=== PATIENT | male | born 1960 | race Caucasian/White ===

== ENCOUNTER 2016-04-05 23:16 | Emergency (ER) | payer OTHER ==
[~2016-04-05] VITALS: Ht 177.8 cm; Wt 86.5 kg
[~2016-04-05 23:16] MED LIST: ACTOS PO; ASPI-664 PO; DOCU-144 PO; GABA-526 PO; HYDR-3498 PO; HYDR-906 PO; ISOS30TA5 PO; LANT3I; METF500T4 PO; OMEP20CA16 PO; PARO10TA26 PO; RAMI2.5C36 PO; SIMV10TA6 PO
[2016-04-05 23:20] VITALS: Ht 177.8 cm; Wt 86.5 kg
[2016-04-06] MEDS ORDERED: morphine 4 MG/ML VIAL IV STA (03:34)
[2016-04-06] MEDS ORDERED: ONDANSETRON 4 MG INJ IV STA (03:34)
[2016-04-06] MEDS ORDERED: SOD CHLORIDE 0.9% 1,000 ML IV STA (03:34)
[2016-04-06 03:59] LABS: BASOPHIL # 0.1 10^3/ul (0.0-0.1); BASOPHILS % 0.7 % (0.0-2.0); EOSINOPHILS # 1.4 10^3/ul (0.0-0.5); EOSINOPHILS % 11.4 % (0.0-7.0); HEMATOCRIT 45.5 % (42.0-52.0); HEMOGLOBIN 15.6 g/dl (14.0-18.0); LYMPHOCYTES # 3.7 10^3/ul (0.8-2.9); LYMPHOCYTES % 30.9 % (15.0-51.0); MEAN CORPUSCULAR HEMOGLOBIN 31.6 pg (29.0-33.0); MEAN CORPUSCULAR HGB CONC 34.2 g/dl (32.0-37.0); MEAN CORPUSCULAR VOLUME 92.5 fl (82.0-101.0); MEAN PLATELET VOLUME 7.6 fl (7.4-10.4); MONOCYTE # 0.7 10^3/ul (0.3-0.9); MONOCYTES % 5.5 % (0.0-11.0); NEUTROPHIL # 6.1 10^3/ul (1.6-7.5); NEUTROPHILS % 51.5 % (39.0-77.0); PLATELET COUNT 233 10^3/UL (140-440); RED BLOOD COUNT 4.92 10^6/ul (4.70-6.10); RED CELL DISTRIBUTION WIDTH 12.8 % (11.5-14.5); UNCORRECTED WBC 11.9 10^3/ul (4.8-10.8); WHITE BLOOD COUNT 11.9 10^3/ul (4.8-10.8)
[2016-04-06 04:22] LABS: CONDITION 1
[2016-04-06 04:28] LABS: ADD UMIC NO; URINE BILIRUBIN (Dip) NEGATIVE (NEGATIVE); URINE BLOOD (Dip) NEGATIVE (NEGATIVE); URINE COLOR LT. YELLOW (YELLOW); URINE GLUCOSE (Dip) NEGATIVE (NEGATIVE); URINE KETONES (Dip) NEGATIVE (NEGATIVE); URINE LEUKOCYTE ESTERASE (Dip) NEGATIVE (NEGATIVE); URINE NITRITE (Dip) NEGATIVE (NEGATIVE); URINE TOTAL PROTEIN (Dip) NEGATIVE (NEGATIVE); URINE UROBILINOGEN (Dip) 0.2 E.U./dL (0.1-1.0)
[2016-04-06 04:28] LABS: BILIRUBIN,INDIRECT 0.4 mg/dl (0-1.1); BILIRUBIN,TOTAL 0.4 mg/dl (0.2-1.3); CALCIUM 9.6 mg/dl (8.4-10.2); CREATININE 0.73 mg/dl (0.61-1.24); TOTAL PROTEIN 7.9 g/dl (6.1-8.1)
[2016-04-06 04:33] LABS: ALBUMIN/GLOBULIN RATIO 1.25
[2016-04-06 04:36] LABS: ALBUMIN 4.4 g/dl (3.3-4.9)
--- NOTE | 2016-04-06 05:59 | RADRPT ---
PROCEDURE: CT Abdomen and pelvis without contrast. CLINICAL INDICATION: Abdominal pain. TECHNIQUE: CT scan of the abdomen and pelvis was performed on the [place] 6 4 slice VCT scanner. Contiguous axial images using 2.5 mm slice thickness were obtained from the keanu ng bases to the ischial tuberosities without intravenous contrast. Coronal and sagittal reformatted images were also obtained. Images were reviewed on the PACS workstation. One or more of the following dose reduction techniques were used: - Automated exposure control. - Adjustment of the mA and/or kV according to patient size. - Use of iterative reconstruction technique. Exam CTD/vol = 20.42 mGy. Total exam DLP = 1147.28 mGy-cm. COMPARISON: 04/21/2015. FINDINGS: Evaluation of the lung bases demonstrates mild bibasilar atelectasis. Abdomen: The liver is normal in size. There is no focal mass or dilatation of the biliary tree. T he gallbladder is not distended. The spleen, pancreas and bilateral adrenal glands are within mynor l limits. Bilateral kidneys are normal in size with no contour deforming mass identified. There is no radiopaque renal or ureteral calculus identified. There is no hydronephrosis or hydroureter. T here is no retroperitoneal adenopathy. The abdominal aorta is of normal caliber with scattered athe rosclerotic calcifications. There is no abnormal bowel wall thickening or distension. There is no bowel obstruction or free air . A normal appendix is identified. There is no diverticulosis or diverticulitis. There is no asci sandhya. Pelvis: The bladder demonstrates mild wall thickening. There are bilateral small inguinal hernias containing fat. The prostate and seminal vesicles are within normal limits. There is no significan t pelvic adenopathy or free fluid. Evaluation of the osseous structures demonstrates no suspicious lytic or blastic lesion. IMPRESSION: Mild bladder wall thickening could be due to underdistension or represent cystitis. Clinical correl ation is needed. Bilateral small inguinal hernias containing fat. Vascular calcifications reflective of atherosclerosis. Mild bibasilar atelectasis. .Raymundo Brown MD, Date Time Electronically viewed and signed by .Raymundo Brown MD, on 04/06/2016 05:59 .T/
[2016-04-06] MEDS ORDERED: POLY17PO6 PO (06:28)
[2016-04-06] MEDS ORDERED: HYDR-906 PO (06:28)
[2016-04-06 06:30] VITALS: BP 134/86; PULSE 65; RESP 17; TEMP 97.6
--- NOTE | 2016-04-06 06:48 | ERD ---
ER Documentation Chief Complaint Date/Time DATE: 04/06/16 TIME: 06:38 Chief Complaint SP HERNIA REPAIR , C/O POST OP PAIN X 2 DAYS HPI This 55-year-old male presents emergency room for right lower abdominal pain status post hernia repair 3 weeks ago. I reviewed the EMR.. The surgery was done by . Patient ran out of his pain medication 2 days ago and has had pain since then. He denies fevers and chills. Pain is described as a aching pain. ROS All systems reviewed and are negative except as per history of present illness. Medications Home Meds Active Scripts Polyethylene Glycol* (Miralax*) 17 Gm Powd.pack, 17 GM PO DAILY for CONSTIPATION , #5 PACKET Prov:GERSONAKIKO DO 04/06/16 Hydrocodone/Acetaminophen ([place] 5-325 Tablet) 1 Each Tablet, 1 EACH PO Q6, #20 TAB Prov:AKIKO NIETO DO 04/06/16 Hydrocodone/Acetaminophen ([place] 5-325 Tablet) 1 Each Tablet, 1 TAB PO Q6H Y for PAIN, #10 TAB Prov:RADHA MERCEDES PA-C 01/08/16 Hydrocodone Bit-Acetaminophen* ([place]*) 5-325 Mg Tab, 1 TAB PO Q6 Y for PAIN, # 7 TAB Prov:JOSE CHAPMAN PA-C 09/03/15 Paroxetine Hcl* (Paxil*) 10 Mg Tab, 10 MG PO DAILY for 30 Days Prov:NADER LINN 12/02/14 Isosorbide Mononitrate* (Isosorbide Mononitrate*) 30 Mg Tabsr, 30 MG PO DAILY for 30 Days Prov:NADER LINN 12/02/14 Aspirin* (Aspirin* EC) 81 Mg Tabec, 81 MG PO DAILY for 30 Days Prov:NADER ILNN 12/02/14 Reported Medications [Actos] No Conflict Check, PO 06/23/15 Ramipril (Ramipril) 2.5 Mg Capsule, 2.5 MG PO DAILY, CAP 05/05/15 Omeprazole* (Omeprazole*) 20 Mg Capsule., 20 MG PO DAILY 04/21/15 Simvastatin (Simvastatin) 10 Mg Tablet, 10 MG PO DAILY 04/21/15 Insulin Glargine* (Lantus*) 100 Unit/Ml Soln 04/21/15 Gabapentin* (Gabapentin*) 600 Mg Tablet, 600 MG PO TID, #90 TAB 04/21/15 Docusate Sodium* (Colace*) 100 Mg Capsule, 100 MG PO DAILY 10/30/12 Metformin* (Glucophage*) 500 Mg Tab, 1000 MG PO BID 09/05/11 Allergies Allergies: Coded Allergies: Penicillins (Unverified Allergy, Unknown, 12/02/14) PMhx/Soc History of Surgery: Yes (hernia surgery 01/2016) Anesthesia Reaction: No Hx Neurological Disorder: No Hx Respiratory Disorders: No Hx Cardiac Disorders: Yes (HTN, HIGH CHOLESTEROL, DM2) Hx Psychiatric Problems: No Hx Miscellaneous Medical Probl: No Hx Alcohol Use: No Hx Substance Use: No Hx Tobacco Use: Yes Smoking Status: Current every day smoker Physical Exam Vitals Vital Signs Date Time Temp Pulse Resp B/P Pulse Ox O2 Delivery O2 Flow Rate FiO2 04/06/16 05:35 97.5 79 17 128/80 100 Room Air 04/05/16 23:20 98.6 90 20 143/80 98 Physical Exam Const: [] No distress Head: Atraumatic Eyes: Normal Conjunctiva ENT: Normal External Ears, Nose and Mouth. Neck: Full range of motion..~ No meningismus. Resp: Clear to auscultation bilaterally Cardio: Regular rate and rhythm, no murmurs Abd: Soft, mild right lower quadrant/pelvic pain with no deformities or guarding or rebound. Non distended. Normal bowel sounds Skin: No petechiae or rashes Back: No midline or flank tenderness Ext: No cyanosis, or edema Neur: Awake and alert prior 3, no focal deficits Psych: Normal Mood and Affect Result Diagram: 04/06/16 0320 04/06/16 0320 Results 24 hrs Laboratory Tests Test 04/06/16 03:20 04/06/16 03:45 Alanine Aminotransferase (ALT/SGPT) 25IU/L Albumin 4.4g/dl Albumin/Globulin Ratio 1.25 Alkaline Phosphatase 72IU/L Anion Gap 19 Aspartate Amino Transf (AST/SGOT) 18IU/L Basophils # 0.110^3/ul Basophils % 0.7% Blood Urea Nitrogen 16mg/dl Calcium Level 9.6mg/dl Carbon Dioxide Level 28mmol/L Chloride Level 98mmol/L Creatinine 0.73mg/dl Direct Bilirubin 0.00mg/dl Eosinophils # 1.410^3/ul Eosinophils % 11.4% Globulin 3.50g/dl Glucose Level 177mg/dl Hematocrit 45.5% Hemoglobin 15.6g/dl Indirect Bilirubin 0.4mg/dl Lipase 55U/L Lymphocytes # 3.710^3/ul Lymphocytes % 30.9% Mean Corpuscular Hemoglobin 31.6pg Mean Corpuscular Hemoglobin Concent 34.2g/dl Mean Corpuscular Volume 92.5fl Mean Platelet Volume 7.6fl Monocytes # 0.710^3/ul Monocytes % 5.5% Neutrophils # 6.110^3/ul Neutrophils % 51.5% Nucleated Red Blood Cells # 0.010^3/ul Nucleated Red Blood Cells % 0.0/100WBC Platelet Count 41039^3/UL Potassium Level 4.0mmol/L Red Blood Count 4.9210^6/ul Red Cell Distribution Width 12.8% Sodium Level 141mmol/L Total Bilirubin 0.4mg/dl Total Protein 7.9g/dl White Blood Count 11.910^3/ul Urine Bilirubin NEGATIVE Urine Clarity CLEAR Urine Color LT. YELLOW Urine Glucose NEGATIVE% Urine Hemoglobin NEGATIVE Urine Ketones NEGATIVE Urine Leukocyte Esterase NEGATIVE Urine Nitrite NEGATIVE Urine Specific Breese 1.015 Urine Total Protein NEGATIVE Urine Urobilinogen 0.2 E.U./dL Urine pH 6.0 Current Medications Medications (Trade) Dose Ordered Sig/Antonia Route PRN Reason Start Time Stop Time Status Last Admin Dose Admin Sodium Chloride (NS) 1,000 ml @ 1,000 mls/hr Q1H STAT IV 04/06/16 03:34 04/06/16 04:33 DC 04/06/16 03:46 Morphine Sulfate (morphine) 4 mg ONCE STAT IV 04/06/16 03:34 04/06/16 03:36 DC 04/06/16 03:46 Ondansetron HCl (Zofran Inj) 4 mg ONCE STAT IV 04/06/16 03:34 04/06/16 03:36 DC 04/06/16 03:46 Procedures/MDM Patient with postop pain likely secondary to running out of narcotic pain medication at home. He has a mildly elevated white blood cell count but no signs of acute infection and CT. CT mentioned mild bladder wall thickening but patient had a completely normal urinalysis. I doubt acute infection at this time. Likely the patient experienced any surgical emergency. A benign abdominal exam. Discharging him with prescription for [place] as well as MiraLAX. I placed a courtesy call the doctor Rema who agrees with discharge and the patient to follow-up in his office next week. She is asymptomatic after given 4 g of morphine a liter of normal saline and Zofran. He is happy do not find anything seriously wrong. Nothing providing him with that instructions for doctor Rema. CT abdomen and pelvis interpretation: No acute process I see no abnormal fat stranding, no obstruction, no free air, no abnormal fluid collections, no bony abnormalities Departure Diagnosis: Primary Impression: Post-op pain Condition: Stable Patient Instructions: Post Op Wound Check, Pain Referrals: Jenaro ROTH Additional Instructions: Llame al cirujano el lunes para hafsa BOOM PARA DENTRO DE 2-3 CABA.Dgale a la secretaria que nosotros le instruimos hacer esta boom.Avise o llame si whitaker condicin se empeora antes de la boom. Regresa aqui si peor o no mejor. AKIKO NIETO DO Apr 06, 2016 06:48
== END 2016-04-06 07:06 | disposition home or self-care (01) ==
LOC: E/R 23:16
DX: R10.31 Right lower quadrant pain (principal); G89.18 Other acute postprocedural pain; I10 Essential (primary) hypertension; E11.9 Type 2 diabetes mellitus without complications; F17.210 Nicotine dependence, cigarettes, uncomplicated; Z79.4 Long term (current) use of insulin; Z79.84 Long term (current) use of oral hypoglycemic drugs; Z79.82 Long term (current) use of aspirin
CPT/HCPCS: 36415; 74176; 80053; 81003; 83690; 85025; 96374; 96375; J2270; J2405; J7030; Z7502

== ENCOUNTER 2016-05-24 07:31 | Day surgery (SDC) | payer OTHER ==
[~2016-05-24] VITALS: Ht 170.2 cm; Wt 90.2 kg
[2016-05-24] VITALS (16 sets, daily range): BP systolic 116–183; BP diastolic 62–102; PULSE 74–88; RESP 14–28; Ht 170.2 cm; Wt 90.2 kg
[~2016-05-24 07:31] MED LIST changes: +CLINDAMYCIN 600 MG/D5W (PMX) 50 ML IVPB ONE; +POLY17PO6 PO; +SOD CHLORIDE 0.9% 1,000 ML IV SCH
[2016-05-24] MEDS ORDERED: BUPIVACAINE 0.25% (MPF) 30 ML INJ ONE (07:56)
--- NOTE | 2016-05-24 08:22 | RADRPT ---
PROCEDURE: XR Chest. CLINICAL INDICATION: Preoperative evaluation for right inguinal hernia. TECHNIQUE: Single AP portable chest COMPARISON: 02/16/2016 FINDINGS: The cardiomediastinal silhouette is within normal limits of size ..The lungs are clear without pleur al effusion or focal consolidation. No pneumothorax. The osseous structures and soft tissues are unr emarkable. IMPRESSION: 1. No evidence for active cardiopulmonary disease. RPTAT:AAJJ Physician Jorge Date Time Electronically viewed and signed by Arron Day Physician on 05/24/2016 08:21 LINDSAY/
[2016-05-24] MEDS ORDERED: POLYMYXIN/BACITRACIN 1L IRRIG ONE (09:50)
[2016-05-24] MEDS ORDERED: MIDAZOLAM 1 MG/ML 2 ML INJ ONE (10:00)
[2016-05-24] MEDS ORDERED: FENTAnyl 50 MCG/ML VIAL IV PRN (10:30)
[2016-05-24] MEDS ORDERED: ONDANSETRON 4 MG INJ IV PRN (10:30)
[2016-05-24] MEDS ORDERED: DIPHENHYDRAMINE 50 MG INJ IV PRN (10:30)
[2016-05-24] MEDS ORDERED: morphine (1 MG/ML) 10ML SYRINGE IV PRN (10:30)
[2016-05-24] MEDS ORDERED: MEPERIDINE 25 MG INJ IV PRN (10:30)
[2016-05-24] MEDS ORDERED: METOCLOPRAMIDE 10 MG INJ IV PRN (10:30)
[2016-05-24] MEDS ORDERED: NEOSTIGMINE 3 MG/3 ML SYRINGE ONE (11:16)
[2016-05-24] MEDS ORDERED: PROPOFOL 20 ML ONE (11:16)
[2016-05-24] MEDS ORDERED: LIDOCAINE 2% (SDV) 5 ML INJ ONE (11:16)
[2016-05-24] MEDS ORDERED: GLYCOPYRROLATE 1 MG INJ ONE (11:16)
[2016-05-24] MEDS ORDERED: ROCURONIUM 50 MG INJ ONE (11:16)
[2016-05-24] MEDS ORDERED: ONDANSETRON 4 MG INJ ONE (11:17)
[2016-05-24] MEDS ORDERED: HYDROCODONE/APAP (5/325) TAB PO ONE (11:30)
[2016-05-24] MEDS: morphine (1 MG/ML) 10ML SYRINGE IV PRN ×2 (11:45→11:53)
--- NOTE | 2016-05-24 12:05 | OPR ---
DATE OF OPERATION: 05/24/2016 INDICATION: This is a 55-year-old male with recurrent right inguinal hernia and incarcerated ventra l hernia. He requests surgical repair. Risks, alternatives, benefits, and personnel were discussed with the patient. The patient expressed understanding and consents to the operation. PREOPERATIVE DIAGNOSIS: Recurrent right inguinal and incarcerated ventral hernia. POSTOPERATIVE DIAGNOSIS: Recurrent right inguinal Incarcerated ventral hernia. OPERATION PERFORMED: 1. Laparoscopic recurrent right inguinal hernia repair with mesh Bard soft. 2. Laparoscopic incarcerated ventral hernia repair with mesh 10 x [address] SURGEON: Lacho Roth MD HEALTH SCIENCE WRITER: Gabe Dozier MD SPECIMENS: None. COMPLICATIONS: None. ANESTHESIA: General. DESCRIPTION OF PROCEDURE: The patient was taken to the OR, prepped and draped in the usual sterile fashion. Surgical timeout was performed. IV antibiotics were given. Infraumbilical transverse inc ision is made with a 15 blade. Dissection cautery was carried down to the fascia which was divided with curved Marion scissors. An 0 Vicryl U-stitch was placed into the fascia. Balloon Wes trocar is introduced. Pneumoperitoneum established. Left flank 12 mm optical trocar and left lower quadra nt 5 mm optical trocars are placed under direct visualization. Upon initial inspection, there was a right inguinal hernia and a ventral hernia that is incarcerated. The recurrent inguinal hernia was addressed initially. Peritoneal flaps were raised to create the retroperitoneal space. Cord struct ures identified. There was a right indirect inguinal hernia which was reduced laparoscopically. Th ere appears to be old mesh that is affixed to the old hernia site. The Bard soft mesh was secured i n place with SecureStrap to the pubic tubercle and Straps are created and reapproximate around the c ord structures to recreate the inguinal ring. The peritoneal flaps and then reapproximated to the a nterior abdominal wall with SecureStrap to cover the mesh. The infraumbilical port was removed and t he fascia was tied down with 0 Vicryl U-stitch. Skin was closed in the infraumbilical incision with skin kali. A left upper quadrant 5 mm incision was made. A 5 mm optical trocar was introduced u nder direct visualization. The incarcerated ventral hernias was addressed. The incarcerated hernia was reduced and resected with laparoscopic Harmonic. The defect was identified. It was a very smal l defect. This area is repaired after the incarcerated contents were resected. Underlay mesh was s ecured with a SecureStrap with approximately 4 to 5 cm of coverage in all directions. There was goo d hemostasis. All ports removed under direct visualization. Skin was closed with skin kali. Lo lulu anesthesia was injected. Dry dressings were applied. Dictated By: LACHO ROTH MD SB/NTS Conf#: [id number] DID#: [id number] CC: GABE DOZIER MD;*EndCC*
[2016-05-24] MEDS ORDERED: hydrALAzine 20 MG INJ ONE (12:08)
[2016-05-24] MEDS ORDERED: hydrALAzine 20 MG INJ IV PRN (12:30)
--- NOTE | 2016-05-28 17:49 | RADRPT ---
Vent Rate: 73 bpm RR Interval: 0 msec LA Interval: 168 msec QRS Duration: 88 msec QT Interval: 398 msec QTC Interval: 438 msec P-R-T [place]: 64 - 70 - 58 degrees Normal sinus rhythm Normal ECG Electronically Signed By: Braeden Jiménez [id number]
== END 2016-05-24 16:46 | disposition home or self-care (01) ==
LOC: SDS 07:31
PROVIDERS: ATTEND Surgery
DX: K40.91 Unilateral inguinal hernia, without obstruction or gangrene, recurrent (principal); K43.6 Other and unspecified ventral hernia with obstruction, without gangrene; I10 Essential (primary) hypertension; E11.9 Type 2 diabetes mellitus without complications; E78.5 Hyperlipidemia, unspecified; E66.9 Obesity, unspecified; Z68.30 Body mass index [BMI] 30.0-30.9, adult
CPT/HCPCS: 49651; 49653; 71010; 82962; 93005; C1781; J0360; J2250; J2270; J2405; J2710; J3010; Z7512; Z7610

== ENCOUNTER 2016-06-26 17:44 | Emergency (ER) | payer OTHER ==
[~2016-06-26] VITALS: Wt 88.0 kg
[~2016-06-26 17:44] MED LIST changes: -CLINDAMYCIN 600 MG/D5W (PMX) 50 ML IVPB ONE; -SOD CHLORIDE 0.9% 1,000 ML IV SCH
[2016-06-26] MEDS ORDERED: SOD CHLORIDE 0.9% 500 ML IV STA (20:35)
[2016-06-26] MEDS ORDERED: morphine 4 MG/ML VIAL IV STA (20:35)
[2016-06-26 21:00] VITALS: TEMP 98.9
--- NOTE | 2016-06-26 21:08 | RADRPT ---
PROCEDURE: XR Chest AP portable CLINICAL INDICATION: Abdominal pain TECHNIQUE: An AP portable radiograph of the chest was submitted. COMPARISON: 05/24/2016 FINDINGS: Support Hardware: None Cardiovascular: The cardiovascular silhouette appears unremarkable. Lung [place]: A poor inspiratory effort compresses lung parenchyma further exaggerating the interstit ial markings over the previous. No alveolar infiltrate is evident. Pleural Spaces: No pneumothorax or pleural effusion is identified. Osseous Structures: The osseous structures appear intact. Soft Tissues: The soft tissues appear unremarkable. IMPRESSION: 1. Poor inspiratory effort compresses lung parenchyma further exaggerating the interstitial marking s. 2. Otherwise, stable and unremarkable portable chest. Physician Otoniel Date Time Electronically viewed and signed by Physician Otoniel on 06/26/2016 21:08 /
[2016-06-26 21:14] LABS: ADD SCAN DIFF NO
[2016-06-26 21:16] LABS: BASOPHIL # 0.1 10^3/ul (0.0-0.1); BASOPHILS % 0.8 % (0.0-2.0); EOSINOPHILS # 1.5 10^3/ul (0.0-0.5); EOSINOPHILS % 14.2 % (0.0-7.0); HEMATOCRIT 43.1 % (42.0-52.0); HEMOGLOBIN 14.7 g/dl (14.0-18.0); LYMPHOCYTES # 3.5 10^3/ul (0.8-2.9); LYMPHOCYTES % 33.2 % (15.0-51.0); MEAN CORPUSCULAR HEMOGLOBIN 31.1 pg (29.0-33.0); MEAN CORPUSCULAR HGB CONC 34.1 g/dl (32.0-37.0); MEAN CORPUSCULAR VOLUME 91.1 fl (82.0-101.0); MEAN PLATELET VOLUME 9.4 fl (7.4-10.4); MONOCYTE # 0.7 10^3/ul (0.3-0.9); MONOCYTES % 6.7 % (0.0-11.0); NEUTROPHIL # 4.7 10^3/ul (1.6-7.5); NEUTROPHILS % 44.7 % (39.0-77.0); PLATELET COUNT 212 10^3/UL (140-415); RED BLOOD COUNT 4.73 10^6/ul (4.70-6.10); RED CELL DISTRIBUTION WIDTH 12.5 % (11.5-14.5); WHITE BLOOD COUNT 10.6 10^3/ul (4.8-10.8)
[2016-06-26 21:27] LABS: ALBUMIN 4.1 g/dl (3.3-4.9)
[2016-06-26 21:28] LABS: POTASSIUM 3.9 mmol/L (3.5-5.1)
[2016-06-26 21:29] LABS: INR 0.92; PARTIAL THROMBOPLASTIN TIME 29.7 Sec (25.0-35.0); PROTIME 12.4 Sec (12.2-14.2)
[2016-06-26 21:30] LABS: ALBUMIN/GLOBULIN RATIO 1.32; BILIRUBIN,INDIRECT 0.3 mg/dl (0-1.1); BILIRUBIN,TOTAL 0.3 mg/dl (0.2-1.3); CALCIUM 9.5 mg/dl (8.4-10.2); CREATININE 0.65 mg/dl (0.61-1.24); TOTAL PROTEIN 7.2 g/dl (6.1-8.1)
--- NOTE | 2016-06-26 21:47 | RADRPT ---
PROCEDURE: CT Abdomen and Pelvis without contrast CLINICAL INDICATION: Right lower quadrant abdominal pain TECHNIQUE: Transaxial images were obtained through the abdomen and pelvis on a multi-slice scanner without the intravenous contrast administration. No oral contrast had previously been given. Sagit marina and coronal re-formations were subsequently reconstructed. One or more of the following dose reduction techniques were used: - Automated exposure control. - Adjustment of the mA and/or kV according to patient size. - Use of iterative reconstruction technique. Radiation dose: CTDIvol = 21.05 mGy; DLP = 1123.41 mGy-cm. COMPARISON: 04/06/2016 FINDINGS: Lung bases: The visualized lung bases appear unremarkable. Liver: Normal in size and in attenuation. There is no focal lesion. Gallbladder: The wall is not thickened. No radiopaque stones are identified. Bile ducts: The intra and extrahepatic bile ducts are normal in caliber. Pancreas: Appears normal with no mass or inflammation evident. Spleen: Normal in size with no focal lesion. Adrenals: Normal with no mass identified. Kidneys, ureters and bladder: The kidneys are normal in size and there is no mass, pathological calc ification, or hydronephrosis evident. There is no perinephric stranding. The ureters are normal in c aliber and no ureteroliths are identified. The bladder appears unremarkable. Reproductive organs: The prostate is not enlarged. Stomach and bowel: The stomach appears unremarkable. The small bowel pattern is nonspecific. Subst antial stool seen in the right colon. A couple diverticuli are evident without evidence of divertic ulitis. There is no evidence of bowel obstruction or inflammation. Appendix: A normal-appearing vermiform appendix is evident. Peritoneum: No free intraperitoneal fluid or air is identified. There are small bilateral fat contai jevon inguinal hernias greater on the left than the right. Aorta: There is atherosclerotic vascular calcification but no abdominal aortic aneurysm is evident. IVC: Unremarkable. Lymph nodes: No pathologically enlarged nodes are identified. Osseous structures: Mild diffuse degenerative spine changes are noted. Small fat containing left ing uinal hernia. Soft tissues: There is stranding in the subcutaneous fat and even within the omentum in the periumb ilical region raising the possibility of either scarring O, edema or inflammation. IMPRESSION: 1. Since the previous CT of 04/06/2016, there is again substantial stool right colon with a few scat tered diverticuli without evidence of bowel obstruction or inflammation and with a normal-appearing vermiform appendix. 2. Stranding is seen about the umbilicus both in the subcutaneous fat and deep within the omentum t he right and the possibility of either postsurgical scarring, inflammation or edema. This was not ev ident on the previous CT. 3. Small bilateral fat containing inguinal hernias, greater on the left than the right, unchanged. 4. Persistent atherosclerotic vascular calcification. Physician Otoniel Date Time Electronically viewed and signed by Physician Otoniel on 06/26/2016 21:47 RH/
[2016-06-26] MEDS ORDERED: LANT3I SC (21:54)
[2016-06-26 21:55] LABS: ADD UMIC NO; URINE BILIRUBIN (Dip) NEGATIVE (NEGATIVE); URINE BLOOD (Dip) NEGATIVE (NEGATIVE); URINE COLOR LT. YELLOW (YELLOW); URINE GLUCOSE (Dip) NEGATIVE (NEGATIVE); URINE KETONES (Dip) NEGATIVE (NEGATIVE); URINE LEUKOCYTE ESTERASE (Dip) NEGATIVE (NEGATIVE); URINE NITRITE (Dip) NEGATIVE (NEGATIVE); URINE TOTAL PROTEIN (Dip) NEGATIVE (NEGATIVE); URINE UROBILINOGEN (Dip) 0.2 E.U./dL (0.1-1.0)
[2016-06-26] MEDS ORDERED: SIMV20TA PO (21:56)
[2016-06-26] MEDS ORDERED: PIOG30TA2 PO (21:56)
[2016-06-26] MEDS ORDERED: OMEP40CA6 PO (21:58)
[2016-06-26] MEDS ORDERED: POLY17PO6 PO (22:47)
[2016-06-26] MEDS ORDERED: MAGN400O4 PO (22:47)
--- NOTE | 2016-06-26 23:05 | ERD ---
ER Documentation Chief Complaint Date/Time DATE: 06/26/16 TIME: 22:59 Chief Complaint R SIDE AP FOR 3 DAYS. NO N/V. NO VOMITNG. NO DIARRHEA. HPI 55-year-old male presenting with right lower quadrant pain. He has a history of umbilical hernia repair about 1 month ago. He has had right lower quadrant pain for about 3 days with subjective fevers. No nausea, vomiting, diarrhea, constipation, hematochezia, or melena. He has been eating without difficulty. The pain is aching, radiating to his lower back and down both his lower extremities. He has no numbness or weakness in his lower extremities or low back. He denies any recent trauma. No dysuria or hematuria. ROS All systems reviewed and are negative except as per history of present illness. Medications Home Meds Active Scripts Magnesium Hydroxide* (Milk Of Magnesia*) 400 Mg/5 Ml Oral.susp, 30 ML PO DAILY for 7 Days, #1 BOTTLE Prov:DONNA MILLS MD 06/26/16 Polyethylene Glycol* (Miralax*) 17 Gm Powd.pack, 17 GM PO DAILY, #30 PACKET Prov:DONNA MILLS MD 06/26/16 Paroxetine Hcl* (Paxil*) 10 Mg Tab, 10 MG PO DAILY for 30 Days Prov:NADER LINN 12/02/14 Isosorbide Mononitrate* (Isosorbide Mononitrate*) 30 Mg Tabsr, 30 MG PO DAILY for 30 Days Prov:NADER LINN 12/02/14 Aspirin* (Aspirin* EC) 81 Mg Tabec, 81 MG PO DAILY for 30 Days Prov:NADER LINN 12/02/14 Reported Medications Omeprazole* (Omeprazole*) 40 Mg Capsule.dr, 40 MG PO DAILY, #30 CAP 06/26/16 Pioglitazone Hcl* (Actos*) 30 Mg Tablet, 30 MG PO DAILY, #30 TAB 06/26/16 Simvastatin* (Zocor*) 20 Mg Tablet, 20 MG PO QHS, #30 TAB 06/26/16 Insulin Glargine* (Lantus*) 100 Unit/Ml Soln, 45 UNIT SC QHS, #1 VIAL 06/26/16 Gabapentin* (Gabapentin*) 600 Mg Tablet, 600 MG PO TID, #90 TAB 1/22/16 Docusate Sodium* (Colace*) 100 Mg Capsule, 100 MG PO DAILY 10/30/12 Metformin* (Glucophage*) 500 Mg Tab, 1000 MG PO BID 09/05/11 Discontinued Reported Medications [Actos] No Conflict Check, PO 06/23/15 Ramipril (Ramipril) 2.5 Mg Capsule, 2.5 MG PO DAILY, CAP 05/05/15 Omeprazole* (Omeprazole*) 20 Mg Capsule.dr, 20 MG PO DAILY 04/21/15 Simvastatin (Simvastatin) 10 Mg Tablet, 10 MG PO DAILY 04/21/15 Insulin Glargine* (Lantus*) 100 Unit/Ml Soln 04/21/15 Discontinued Scripts Polyethylene Glycol* (Miralax*) 17 Gm Powd.pack, 17 GM PO DAILY for CONSTIPATION , #5 PACKET Prov:AKIKO NIETO DO 04/06/16 Hydrocodone/Acetaminophen ([place] 5-325 Tablet) 1 Each Tablet, 1 EACH PO Q6, #20 TAB Prov:AKIKO NIETO DO 04/06/16 Hydrocodone/Acetaminophen ([place] 5-325 Tablet) 1 Each Tablet, 1 TAB PO Q6H Y for PAIN, #10 TAB Prov:RADHA MERCEDES PA-C 01/08/16 Hydrocodone Bit-Acetaminophen* ([place]*) 5-325 Mg Tab, 1 TAB PO Q6 Y for PAIN, # 7 TAB Prov:JOSE CHAPMAN PA-C 09/03/15 Allergies Allergies: Coded Allergies: Penicillins (Unverified Allergy, Unknown, 06/26/16) PMhx/Soc History of Surgery: Yes (Umbilical hernia repair, inguinal hernia repair) Anesthesia Reaction: No Hx Neurological Disorder: Yes (NUERAPATHY) Hx Respiratory Disorders: No Hx Cardiac Disorders: Yes (HYPERTENSION, CAD-1 stent) Hx Psychiatric Problems: Yes (anxiety) Hx Miscellaneous Medical Probl: Yes (cholesterol) Hx Alcohol Use: No Hx Substance Use: No Hx Tobacco Use: Yes ( 10-14) Smoking Status: Never smoker FmHx Family History: No diabetes Physical Exam Vitals Vital Signs Date Time Temp Pulse Resp B/P Pulse Ox O2 Delivery O2 Flow Rate FiO2 06/26/16 21:00 98.9 65 18 146/82 100 Room Air 06/26/16 18:08 98.9 88 21 139/81 100 Physical Exam Const: No apparent distress, nontoxic, well-appearing Head: Atraumatic Eyes: Normal Conjunctiva ENT: Normal External Ears, Nose and Mouth. Neck: Full range of motion..~ No meningismus. Resp: Clear to auscultation bilaterally Cardio: Regular rate and rhythm, no murmurs Abd: Soft, mildly distended, right lower quadrant tenderness to palpation without rebound or guarding, otherwise nontender. Umbilical surgical scar healed well with no erythema, fluctuance, tenderness. Normal bowel sounds. No hernias on exam. Skin: No petechiae or rashes Back: No midline or flank tenderness Ext: No cyanosis, or edema Neur: Awake and alert Psych: Normal Mood and Affect Result Diagram: 06/26/16202906/26/16 2030 Results 24 hrs Laboratory Tests Test 06/26/16 20:30 06/26/16 21:24 White Blood Count 10.610^3/ul Red Blood Count 4.7310^6/ul Hemoglobin 14.7g/dl Hematocrit 43.1% Mean Corpuscular Volume 91.1fl Mean Corpuscular Hemoglobin 31.1pg Mean Corpuscular Hemoglobin Concent 34.1g/dl Red Cell Distribution Width 12.5% Platelet Count 71620^3/UL Mean Platelet Volume 9.4fl Neutrophils % 44.7% Lymphocytes % 33.2% Monocytes % 6.7% Eosinophils % 14.2% Basophils % 0.8% Nucleated Red Blood Cells % 0.0/100WBC Neutrophils # 4.710^3/ul Lymphocytes # 3.510^3/ul Monocytes # 0.710^3/ul Eosinophils # 1.510^3/ul Basophils # 0.110^3/ul Nucleated Red Blood Cells # 0.010^3/ul Prothrombin Time 12.4Sec Prothrombin Time Ratio 1.0 INR International Normalized Ratio 0.92 Activated Partial Thromboplast Time 29.7Sec Sodium Level 139mmol/L Potassium Level 3.9mmol/L Chloride Level 99mmol/L Carbon Dioxide Level 30mmol/L Anion Gap 14 Blood Urea Nitrogen 14mg/dl Creatinine 0.65mg/dl Glucose Level 140mg/dl Calcium Level 9.5mg/dl Total Bilirubin 0.3mg/dl Direct Bilirubin 0.00mg/dl Indirect Bilirubin 0.3mg/dl Aspartate Amino Transf (AST/SGOT) 20IU/L Alanine Aminotransferase (ALT/SGPT) 26IU/L Alkaline Phosphatase 72IU/L Total Protein 7.2g/dl Albumin 4.1g/dl Globulin 3.10g/dl Albumin/Globulin Ratio 1.32 Lipase 25U/L Urine Color LT. YELLOW Urine Clarity CLEAR Urine pH 7.0 Urine Specific [place] <=1.005 Urine Ketones NEGATIVE Urine Nitrite NEGATIVE Urine Bilirubin NEGATIVE Urine Urobilinogen 0.2 E.U./dL Urine Leukocyte Esterase NEGATIVE Urine Hemoglobin NEGATIVE Urine Glucose NEGATIVE% Urine Total Protein NEGATIVE Current Medications Medications (Trade) Dose Ordered Sig/Antonia Route PRN Reason Start Time Stop Time Status Last Admin Dose Admin Sodium Chloride (NS) 500 ml @ 500 mls/hr Q1H STAT IV 06/26/16 20:35 06/26/16 21:34 DC 06/26/16 20:56 Morphine Sulfate (morphine) 8 mg ONCE STAT IV 06/26/16 20:35 06/26/16 20:37 DC 06/26/16 20:56 Procedures/MDM EMERGENT LABS AND DIAGNOSTIC STUDIES: Lab Results above were reviewed and interpreted by ks. No significant abnormalities 12-lead EKG was interpreted by Kristie Mills MD: Normal Sinus Rhythm with ventricular rate of 66 beats per minute Normal axis Normal intervals No acute ST or T wave changes suggestive of acute ischemia or STEMI. Radiology Results as interpreted by Radiology below were reviewed by SKayla Mills MD: Chest x-ray: No acute abnormalities CT abdomen and pelvis: IMPRESSION: 1. Since the previous CT of 04/06/2016, there is again substantial stool right colon with a few scattered diverticuli without evidence of bowel obstruction or inflammation and with a normal-appearing vermiform appendix. 2. Stranding is seen about the umbilicus both in the subcutaneous fat and deep within the omentum the right and the possibility of either postsurgical scarring , inflammation or edema. This was not evident on the previous CT. 3. Small bilateral fat containing inguinal hernias, greater on the left than the right, unchanged. 4. Persistent atherosclerotic vascular calcification. Physician Otoniel Date Time Electronically viewed and signed by Physician Otoniel on 06/26/2016 21:47 Initial Nursing notes reviewed. Previous Medical Records requested via the Electronic Health Record. EMERGENCY DEPARTMENT COURSE / MEDICAL DECISION MAKING: Patient is presenting with right lower quadrant abdominal pain and subjective fevers. Here he is afebrile with stable vitals. He is nontoxic and well- appearing on exam. Differential includes but is not limited to postop infection , appendicitis, bowel obstruction, perforated viscus, recurrent hernia with incarceration, volvulus, ureterolithiasis. Labs did not show any acute abnormalities. Urinalysis was normal. Chest x-ray did not show any free air under the diaphragm. CT of the abdomen and pelvis did not show any acute abnormalities. There was some inflammation noted around the umbilical hernia surgical site, but there is no concerning findings on exam. CT did show retained stool in the right colon, which may be the etiology of his pain. I discussed this with the patient and plan to discharge him with laxatives. The patients symptoms have improved while in the ED and the patient remains hemodynamically stable. Patient was able to tolerate PO. The current assessment has been explained to the patient including the fact that the etiology of the pain cannot be ruled out with certainty. Patient was advised that in the event this is early in the process of a more serious condition they may expect their symptoms to worsen and if so to return to the emergency department immediately. Patient was advised to follow up with primary care physician as soon as possible for re-evaluation within the next 1- 2 days. All of the patients questions were answered. Patient verbalized understanding of plan and agrees. Advised to return to the ER for reevaluation within 12 hours if symptoms worsen. Patient's blood pressure was elevated (>120/80) but appears stable without evidence of hypertensive emergency or urgency. The patient was counseled about the risks of hypertension and urged to pursue outpatient monitoring and therapy within a week with their primary care physician. Departure Diagnosis: Primary Impression: Abdominal pain Abdominal location: right lower quadrant Qualified Code: R10.31 - Right lower quadrant abdominal pain Additional Impression: Constipation Constipation type: unspecified constipation type Qualified Code: K59.00 - Constipation, unspecified constipation type Condition: Stable Patient Instructions: Abdominal Pain, Treating Constipation Additional Instructions: Regrese en las prximas 12 horas si whitaker dolor abdominal est empeorando o si tiene otros sntomas relacionados. [place] los medicamentos para whitaker estreimiento segn lo prescrito. Sukumar hafsa filipe con whitaker mdico de cabecera en 1-2 baez. DONNA MILLS MD Jun 26, 2016 23:05
[2016-06-26 23:15] VITALS: BP 109/71; PULSE 71; RESP 18
== END 2016-06-26 23:23 | disposition home or self-care (01) ==
LOC: E/R 17:44
DX: R10.31 Right lower quadrant pain (principal); K59.00 Constipation, unspecified; I10 Essential (primary) hypertension; E11.9 Type 2 diabetes mellitus without complications; Z79.4 Long term (current) use of insulin; Z79.82 Long term (current) use of aspirin; Z79.84 Long term (current) use of oral hypoglycemic drugs; Z87.891 Personal history of nicotine dependence; Z98.61 Coronary angioplasty status
CPT/HCPCS: 36415; 71010; 74176; 80053; 81003; 83690; 85025; 85610; 85730; 87040; 93005; 96374; J2270; J7040; Z7502

== ENCOUNTER 2017-01-24 01:45 | Emergency (ER) | payer OTHER ==
[~2017-01-24] VITALS: Ht 172.7 cm; Wt 94.5 kg
[~2017-01-24 01:45] MED LIST changes: -ACTOS PO; -HYDR-3498 PO; -HYDR-906 PO; -LANT3I; +LANT3I SC; +MAGN400O4 PO; -OMEP20CA16 PO; +OMEP40CA6 PO; +PIOG30TA2 PO; -RAMI2.5C36 PO; -SIMV10TA6 PO; +SIMV20TA PO
[2017-01-24 01:47] VITALS: Ht 172.7 cm; Wt 94.5 kg
[2017-01-24] MEDS ORDERED: MECLIZINE 12.5 MG TAB PO ONE (03:30)
[2017-01-24] MEDS ORDERED: HYDROCODONE/APAP (5/325) TAB PO ONE (03:30)
--- NOTE | 2017-01-24 03:54 | RADRPT ---
PROCEDURE: CT BRAIN WITHOUT CONTRAST CLINICAL INDICATION: 56-year-old male with headaches. TECHNIQUE: The study was performed utilizing [employer] VCT 64-slice CT scanner. Direct axial sections were obtained from the foramen magnum to the vertex without the use of intravenous contrast material. Sagittal and coronal reformations were obtained. One or more of the following dose reduc tion techniques were utilized: automated exposure control, adjustment of the mA and/or kV according to patient's size or use of iterative reconstruction technique. The images were viewed on a PACS w orkstation. CTD/vol = 45.0 mGy; Total Exam DLP = 720.2 mGy-cm. COMPARISON: CT brain September 03, 2015. FINDINGS: There is mild prominence of the sulci and cisternal spaces consistent with diffuse volume loss. Oth erwise, the ventricles have a normal shape and position. There is no evidence for mass effect or mid line shift. There are mild calcifications within the intracranial carotid arteries bilaterally. Th ere is no evidence for acute intra or extra-axial blood. The bony calvarium is intact. There is mini mal mucosal thickening within the ethmoid air cells bilaterally. No air-fluid levels are noted. The mastoid air cells are without significant soft tissue. IMPRESSION: 1. The intracranial contents without significant interval change compared to the patient's prior CT scan from September 03, 2015. 2. Mild diffuse volume loss. 3. Minimal mucosal thickening ethmoid air cells. .Kushal Wills MD, Date Time Electronically viewed and signed by .Kushal Wills MD, MD on 01/24/2017 03:53 .M/
--- NOTE | 2017-01-24 03:57 | ERD ---
ER Documentation Chief Complaint Chief Complaint headache x 2 days HPI This is a 56-year-old male presents to the emergency department today complaining of headache and dizziness for the past 2 days. He is not taking any medication for the pain. Denies any fevers or chills, blurred vision, vomiting. ROS All systems reviewed and are negative except as per history of present illness. Medications Home Meds Active Scripts Naproxen* (Naprosyn*) 500 Mg Tablet, 500 MG PO BID Y for PAIN AND/OR INFLAMMATION, #30 TAB Prov:JERZY BAH PA-C 01/24/17 Meclizine Hcl* (Antivert*) 12.5 Mg Tab, 12.5 MG PO Q6H Y for DIZZINESS, #20 TAB Prov:JERZY BAH PA-C 01/24/17 Hydrocodone/Acetaminophen ([place] 5-325 Tablet) 1 Each Tablet, 1 TAB PO Q6H Y for PAIN, #10 TAB Prov:JERZY BAH PA-C 01/24/17 Magnesium Hydroxide* (Milk Of Magnesia*) 400 Mg/5 Ml Oral.susp, 30 ML PO DAILY for 7 Days, #1 BOTTLE Prov:DONNA CASEY MD 06/26/16 Polyethylene Glycol* (Miralax*) 17 Gm Powd.pack, 17 GM PO DAILY, #30 PACKET Prov:DONNA CASEY MD 06/26/16 Paroxetine Hcl* (Paxil*) 10 Mg Tab, 10 MG PO DAILY for 30 Days Prov:NADER LINN 12/02/14 Isosorbide Mononitrate* (Isosorbide Mononitrate*) 30 Mg Tabsr, 30 MG PO DAILY for 30 Days Prov:NADER LINN 12/02/14 Aspirin* (Aspirin* EC) 81 Mg Tabec, 81 MG PO DAILY for 30 Days Prov:NADER LINN 12/02/14 Reported Medications Omeprazole* (Omeprazole*) 40 Mg Capsule.dr, 40 MG PO DAILY, #30 CAP 06/26/16 Pioglitazone Hcl* (Actos*) 30 Mg Tablet, 30 MG PO DAILY, #30 TAB 06/26/16 Simvastatin* (Zocor*) 20 Mg Tablet, 20 MG PO QHS, #30 TAB 06/26/16 Insulin Glargine* (Lantus*) 100 Unit/Ml Soln, 45 UNIT SC QHS, #1 VIAL 06/26/16 Gabapentin* (Gabapentin*) 600 Mg Tablet, 600 MG PO TID, #90 TAB 04/21/15 Docusate Sodium* (Colace*) 100 Mg Capsule, 100 MG PO DAILY 10/30/12 Metformin* (Glucophage*) 500 Mg Tab, 1000 MG PO BID 09/05/11 Allergies Allergies: Coded Allergies: Penicillins (Unverified Allergy, Unknown, 06/26/16) PMhx/Soc History of Surgery: Yes (Umbilical hernia repair, inguinal hernia repair) Anesthesia Reaction: No Hx Neurological Disorder: Yes (NUERAPATHY) Hx Respiratory Disorders: No Hx Cardiac Disorders: Yes (HYPERTENSION, CAD-1 stent) Hx Psychiatric Problems: Yes (anxiety) Hx Miscellaneous Medical Probl: Yes (cholesterol) Hx Alcohol Use: No Hx Substance Use: No Hx Tobacco Use: Yes ( -) Physical Exam Vitals Vital Signs Date Time Temp Pulse Resp B/P Pulse Ox O2 Delivery O2 Flow Rate FiO2 01/24/17 05:00 75 20 124/82 99 Room Air 01/24/17 01:47 98.2 90 20 147/70 97 Physical Exam Const: NAD Head: Atraumatic Eyes: Normal Conjunctiva. PERRLA. EOM intact. ENT: Normal External Ears, Nose and Mouth. Neck: Full range of motion..~ No meningismus. Resp: Clear to auscultation bilaterally Cardio: Regular rate and rhythm, no murmurs Abd: Soft, non tender, non distended. Normal bowel sounds Skin: No petechiae or rashes Back: No midline or flank tenderness Ext: No cyanosis, or edema cranial nerves II through XII intact. No gait ataxia. No pronator drift. Neur: Awake and alert Psych: Normal Mood and Affect Results 24 hrs Current Medications Medications (Trade) Dose Ordered Sig/Antonia Route PRN Reason Start Time Stop Time Status Last Admin Dose Admin Acetaminophen/ Hydrocodone Bitart ([place] (5/325)) 1 tab ONCE ONCE PO 01/24/17 03:30 01/24/17 03:31 DC Meclizine HCl (Antivert) 25 mg ONCE ONCE PO 01/24/17 03:30 01/24/17 03:31 DC 01/24/17 03:56 Ketorolac Tromethamine (Toradol) 30 mg ONCE STAT IM 01/24/17 03:58 01/24/17 03:59 DC 01/24/17 04:04 DIAGNOSTIC IMAGING REPORT Patient: BREANNA CONTRERAS : 1960 Age: 56 Sex: M MR #: [id number] DOS: 01/24/17 0000 Ordering MD: JERZY BAH PA-C Location: [facility] Room/Bed: PROCEDURE: CT BRAIN WITHOUT CONTRAST CLINICAL INDICATION: 56-year-old male with headaches. TECHNIQUE: The study was performed utilizing [employer] VCT 64-slice CT scanner. Direct axial sections were obtained from the foramen magnum to the vertex without the use of intravenous contrast material. Sagittal and coronal reformations were obtained. One or more of the following dose reduction techniques were utilized: automated exposure control, adjustment of the mA and/ or kV according to patient's size or use of iterative reconstruction technique. The images were viewed on a PACS workstation. CTD/vol = 45.0 mGy; Total Exam DLP = 720.2 mGy-cm. COMPARISON: CT brain September 03, 2015. FINDINGS: There is mild prominence of the sulci and cisternal spaces consistent with diffuse volume loss. Otherwise, the ventricles have a normal shape and position. There is no evidence for mass effect or midline shift. There are mild calcifications within the intracranial carotid arteries bilaterally. There is no evidence for acute intra or extra-axial blood. The bony calvarium is intact. There is minimal mucosal thickening within the ethmoid air cells bilaterally. No air-fluid levels are noted. The mastoid air cells are without significant soft tissue. IMPRESSION: 1. The intracranial contents without significant interval change compared to the patient's prior CT scan from September 03, 2015. 2. Mild diffuse volume loss. 3. Minimal mucosal thickening ethmoid air cells. .Kushal Wills MD, MD Date Time Electronically viewed and signed by .Kushal Wills MD, MD on 01/24/2017 03:53 .M/ CC: JERZY BAH PA-C Procedures/MDM This is a 56-year-old male who presents the emergency department today complaining of headache and dizziness for the past 2 days. Patient does not report usual headaches and has not had them in the past and therefore did obtain a head CT scan as well as EKG given patient's dizziness complaint. Head CT noncontrast shows intracranial contents without significant interval change compared to patient's prior CT scan from 2016. No evidence for mass- effect or midline shift. There is minimal mucosal thickening within the ethmoid air cells bilaterally. The mastoid air cells with significant soft tissues. There is mild diffuse volume loss. EKG read and interpreted by Dr. Can. Rate [address] elevation. No QT prolongation. Normal sinus rhythm. Low suspicion for acute [place], PE, pericarditis. Symptoms at this time is consistent with headache and dizziness. Patient was given Toradol and meclizine here in the emergency department and reported feeling significantly better. He was requesting to go home. Patient was given a prescription for short course of [place],Naprosyn meclizine for home. At this time the patient is stable for discharge and outpatient management. Patient should follow up with their PCP in the next 1-2 days. They may return to the emergency department sooner for any persistent or worsening of symptoms. Patient understood and agreed with the plan. Discussed the patient with Dr. Can and he is in agreement with the plan JERZY BAH PA-C Jan 24, 2017 03:57
--- NOTE | 2017-01-24 03:57 | ERD ---
ER Documentation Chief Complaint Chief Complaint headache x 2 days HPI This is a 56-year-old male presents to the emergency department today complaining of headache and dizziness for the past 2 days. He is not taking any medication for the pain. Denies any fevers or chills, blurred vision, vomiting. ROS All systems reviewed and are negative except as per history of present illness. Medications Home Meds Active Scripts Naproxen* (Naprosyn*) 500 Mg Tablet, 500 MG PO BID Y for PAIN AND/OR INFLAMMATION, #30 TAB Prov:JERZY BAH PA-C 01/24/17 Meclizine Hcl* (Antivert*) 12.5 Mg Tab, 12.5 MG PO Q6H Y for DIZZINESS, #20 TAB Prov:JERZY BAH PA-C 01/24/17 Hydrocodone/Acetaminophen (Greene 5-325 Tablet) 1 Each Tablet, 1 TAB PO Q6H Y for PAIN, #10 TAB Prov:JERZY BAH PA-C 01/24/17 Magnesium Hydroxide* (Milk Of Magnesia*) 400 Mg/5 Ml Oral.susp, 30 ML PO DAILY for 7 Days, #1 BOTTLE Prov:DONNA CASEY MD 06/26/16 Polyethylene Glycol* (Miralax*) 17 Gm Powd.pack, 17 GM PO DAILY, #30 PACKET Prov:DONNA CASEY MD 06/26/16 Paroxetine Hcl* (Paxil*) 10 Mg Tab, 10 MG PO DAILY for 30 Days Prov:NADER LINN 12/02/14 Isosorbide Mononitrate* (Isosorbide Mononitrate*) 30 Mg Tabsr, 30 MG PO DAILY for 30 Days Prov:NADER LINN 12/02/14 Aspirin* (Aspirin* EC) 81 Mg Tabec, 81 MG PO DAILY for 30 Days Prov:NADER LINN 12/02/14 Reported Medications Omeprazole* (Omeprazole*) 40 Mg Capsule.dr, 40 MG PO DAILY, #30 CAP 06/26/16 Pioglitazone Hcl* (Actos*) 30 Mg Tablet, 30 MG PO DAILY, #30 TAB 06/26/16 Simvastatin* (Zocor*) 20 Mg Tablet, 20 MG PO QHS, #30 TAB 06/26/16 Insulin Glargine* (Lantus*) 100 Unit/Ml Soln, 45 UNIT SC QHS, #1 VIAL 06/26/16 Gabapentin* (Gabapentin*) 600 Mg Tablet, 600 MG PO TID, #90 TAB 04/21/15 Docusate Sodium* (Colace*) 100 Mg Capsule, 100 MG PO DAILY 10/30/12 Metformin* (Glucophage*) 500 Mg Tab, 1000 MG PO BID 09/05/11 Allergies Allergies: Coded Allergies: Penicillins (Unverified Allergy, Unknown, 06/26/16) PMhx/Soc History of Surgery: Yes (Umbilical hernia repair, inguinal hernia repair) Anesthesia Reaction: No Hx Neurological Disorder: Yes (NUERAPATHY) Hx Respiratory Disorders: No Hx Cardiac Disorders: Yes (HYPERTENSION, CAD-1 stent) Hx Psychiatric Problems: Yes (anxiety) Hx Miscellaneous Medical Probl: Yes (cholesterol) Hx Alcohol Use: No Hx Substance Use: No Hx Tobacco Use: Yes ( -) Physical Exam Vitals Vital Signs Date Time Temp Pulse Resp B/P Pulse Ox O2 Delivery O2 Flow Rate FiO2 01/24/17 05:00 75 20 124/82 99 Room Air 01/24/17 01:47 98.2 90 20 147/70 97 Physical Exam Const: NAD Head: Atraumatic Eyes: Normal Conjunctiva. PERRLA. EOM intact. ENT: Normal External Ears, Nose and Mouth. Neck: Full range of motion..~ No meningismus. Resp: Clear to auscultation bilaterally Cardio: Regular rate and rhythm, no murmurs Abd: Soft, non tender, non distended. Normal bowel sounds Skin: No petechiae or rashes Back: No midline or flank tenderness Ext: No cyanosis, or edema cranial nerves II through XII intact. No gait ataxia. No pronator drift. Neur: Awake and alert Psych: Normal Mood and Affect Results 24 hrs Current Medications Medications (Trade) Dose Ordered Sig/Antonia Route PRN Reason Start Time Stop Time Status Last Admin Dose Admin Acetaminophen/ Hydrocodone Bitart (Greene (5/325)) 1 tab ONCE ONCE PO 01/24/17 03:30 01/24/17 03:31 DC Meclizine HCl (Antivert) 25 mg ONCE ONCE PO 01/24/17 03:30 01/24/17 03:31 DC 01/24/17 03:56 Ketorolac Tromethamine (Toradol) 30 mg ONCE STAT IM 01/24/17 03:58 01/24/17 03:59 DC 01/24/17 04:04 DIAGNOSTIC IMAGING REPORT Patient: BREANNA CONTRERAS : 1960 Age: 56 Sex: M MR #: [id number] DOS: 01/24/17 0000 Ordering MD: JERZY BAH PA-C Location: [facility] Room/Bed: PROCEDURE: CT BRAIN WITHOUT CONTRAST CLINICAL INDICATION: 56-year-old male with headaches. TECHNIQUE: The study was performed utilizing [employer] VCT 64-slice CT scanner. Direct axial sections were obtained from the foramen magnum to the vertex without the use of intravenous contrast material. Sagittal and coronal reformations were obtained. One or more of the following dose reduction techniques were utilized: automated exposure control, adjustment of the mA and/ or kV according to patient's size or use of iterative reconstruction technique. The images were viewed on a PACS workstation. CTD/vol = 45.0 mGy; Total Exam DLP = 720.2 mGy-cm. COMPARISON: CT brain September 03, 2015. FINDINGS: There is mild prominence of the sulci and cisternal spaces consistent with diffuse volume loss. Otherwise, the ventricles have a normal shape and position. There is no evidence for mass effect or midline shift. There are mild calcifications within the intracranial carotid arteries bilaterally. There is no evidence for acute intra or extra-axial blood. The bony calvarium is intact. There is minimal mucosal thickening within the ethmoid air cells bilaterally. No air-fluid levels are noted. The mastoid air cells are without significant soft tissue. IMPRESSION: 1. The intracranial contents without significant interval change compared to the patient's prior CT scan from September 03, 2015. 2. Mild diffuse volume loss. 3. Minimal mucosal thickening ethmoid air cells. .Kushal Wills MD, MD Date Time Electronically viewed and signed by .Kushal Wills MD, MD on 01/24/2017 03:53 .M/ CC: JERZY BAH PA-C Procedures/MDM This is a 56-year-old male who presents the emergency department today complaining of headache and dizziness for the past 2 days. Patient does not report usual headaches and has not had them in the past and therefore did obtain a head CT scan as well as EKG given patient's dizziness complaint. Head CT noncontrast shows intracranial contents without significant interval change compared to patient's prior CT scan from 2016. No evidence for mass- effect or midline shift. There is minimal mucosal thickening within the ethmoid air cells bilaterally. The mastoid air cells with significant soft tissues. There is mild diffuse volume loss. EKG read and interpreted by Dr. Can. Rate [address] elevation. No QT prolongation. Normal sinus rhythm. Low suspicion for acute [place], PE, pericarditis. Symptoms at this time is consistent with headache and dizziness. Patient was given Toradol and meclizine here in the emergency department and reported feeling significantly better. He was requesting to go home. Patient was given a prescription for short course of Greene,Naprosyn meclizine for home. At this time the patient is stable for discharge and outpatient management. Patient should follow up with their PCP in the next 1-2 days. They may return to the emergency department sooner for any persistent or worsening of symptoms. Patient understood and agreed with the plan. Discussed the patient with Dr. Can and he is in agreement with the plan JERZY BAH PA-C Jan 24, 2017 03:57
--- NOTE | 2017-01-24 03:57 | ERD ---
ER Documentation Chief Complaint Chief Complaint headache x 2 days HPI This is a 56-year-old male presents to the emergency department today complaining of headache and dizziness for the past 2 days. He is not taking any medication for the pain. Denies any fevers or chills, blurred vision, vomiting. ROS All systems reviewed and are negative except as per history of present illness. Medications Home Meds Active Scripts Naproxen* (Naprosyn*) 500 Mg Tablet, 500 MG PO BID Y for PAIN AND/OR INFLAMMATION, #30 TAB Prov:JERZY BAH PA-C 01/24/17 Meclizine Hcl* (Antivert*) 12.5 Mg Tab, 12.5 MG PO Q6H Y for DIZZINESS, #20 TAB Prov:JERZY BAH PA-C 01/24/17 Hydrocodone/Acetaminophen ([place]enna 5-325 Tablet) 1 Each Tablet, 1 TAB PO Q6H Y for PAIN, #10 TAB Prov:JERZY BAH PA-C 01/24/17 Magnesium Hydroxide* (Milk Of Magnesia*) 400 Mg/5 Ml Oral.susp, 30 ML PO DAILY for 7 Days, #1 BOTTLE Prov:DONNA CASEY MD 06/26/16 Polyethylene Glycol* (Miralax*) 17 Gm Powd.pack, 17 GM PO DAILY, #30 PACKET Prov:DONNA CASEY MD 06/26/16 Paroxetine Hcl* (Paxil*) 10 Mg Tab, 10 MG PO DAILY for 30 Days Prov:NADER LINN 12/02/14 Isosorbide Mononitrate* (Isosorbide Mononitrate*) 30 Mg Tabsr, 30 MG PO DAILY for 30 Days Prov:NADER LINN 12/02/14 Aspirin* (Aspirin* EC) 81 Mg Tabec, 81 MG PO DAILY for 30 Days Prov:NADER LINN 12/02/14 Reported Medications Omeprazole* (Omeprazole*) 40 Mg Capsule.dr, 40 MG PO DAILY, #30 CAP 06/26/16 Pioglitazone Hcl* (Actos*) 30 Mg Tablet, 30 MG PO DAILY, #30 TAB 06/26/16 Simvastatin* (Zocor*) 20 Mg Tablet, 20 MG PO QHS, #30 TAB 06/26/16 Insulin Glargine* (Lantus*) 100 Unit/Ml Soln, 45 UNIT SC QHS, #1 VIAL 06/26/16 Gabapentin* (Gabapentin*) 600 Mg Tablet, 600 MG PO TID, #90 TAB 04/21/15 Docusate Sodium* (Colace*) 100 Mg Capsule, 100 MG PO DAILY 10/30/12 Metformin* (Glucophage*) 500 Mg Tab, 1000 MG PO BID 09/05/11 Allergies Allergies: Coded Allergies: Penicillins (Unverified Allergy, Unknown, 06/26/16) PMhx/Soc History of Surgery: Yes (Umbilical hernia repair, inguinal hernia repair) Anesthesia Reaction: No Hx Neurological Disorder: Yes (NUERAPATHY) Hx Respiratory Disorders: No Hx Cardiac Disorders: Yes (HYPERTENSION, CAD-1 stent) Hx Psychiatric Problems: Yes (anxiety) Hx Miscellaneous Medical Probl: Yes (cholesterol) Hx Alcohol Use: No Hx Substance Use: No Hx Tobacco Use: Yes ( -) Physical Exam Vitals Vital Signs Date Time Temp Pulse Resp B/P Pulse Ox O2 Delivery O2 Flow Rate FiO2 01/24/17 05:00 75 20 124/82 99 Room Air 01/24/17 01:47 98.2 90 20 147/70 97 Physical Exam Const: NAD Head: Atraumatic Eyes: Normal Conjunctiva. PERRLA. EOM intact. ENT: Normal External Ears, Nose and Mouth. Neck: Full range of motion..~ No meningismus. Resp: Clear to auscultation bilaterally Cardio: Regular rate and rhythm, no murmurs Abd: Soft, non tender, non distended. Normal bowel sounds Skin: No petechiae or rashes Back: No midline or flank tenderness Ext: No cyanosis, or edema cranial nerves II through XII intact. No gait ataxia. No pronator drift. Neur: Awake and alert Psych: Normal Mood and Affect Results 24 hrs Current Medications Medications (Trade) Dose Ordered Sig/Antonia Route PRN Reason Start Time Stop Time Status Last Admin Dose Admin Acetaminophen/ Hydrocodone Bitart (Kenna (5/325)) 1 tab ONCE ONCE PO 01/24/17 03:30 01/24/17 03:31 DC Meclizine HCl (Antivert) 25 mg ONCE ONCE PO 01/24/17 03:30 01/24/17 03:31 DC 01/24/17 03:56 Ketorolac Tromethamine (Toradol) 30 mg ONCE STAT IM 01/24/17 03:58 01/24/17 03:59 DC 01/24/17 04:04 DIAGNOSTIC IMAGING REPORT Patient: BREANNA CONTRERAS : 1960 Age: 56 Sex: M MR #: [id number] DOS: 01/24/17 0000 Ordering MD: JERZY BAH PA-C Location: [facility] Room/Bed: PROCEDURE: CT BRAIN WITHOUT CONTRAST CLINICAL INDICATION: 56-year-old male with headaches. TECHNIQUE: The study was performed utilizing [employer] VCT 64-slice CT scanner. Direct axial sections were obtained from the foramen magnum to the vertex without the use of intravenous contrast material. Sagittal and coronal reformations were obtained. One or more of the following dose reduction techniques were utilized: automated exposure control, adjustment of the mA and/ or kV according to patient's size or use of iterative reconstruction technique. The images were viewed on a PACS workstation. CTD/vol = 45.0 mGy; Total Exam DLP = 720.2 mGy-cm. COMPARISON: CT brain September 03, 2015. FINDINGS: There is mild prominence of the sulci and cisternal spaces consistent with diffuse volume loss. Otherwise, the ventricles have a normal shape and position. There is no evidence for mass effect or midline shift. There are mild calcifications within the intracranial carotid arteries bilaterally. There is no evidence for acute intra or extra-axial blood. The bony calvarium is intact. There is minimal mucosal thickening within the ethmoid air cells bilaterally. No air-fluid levels are noted. The mastoid air cells are without significant soft tissue. IMPRESSION: 1. The intracranial contents without significant interval change compared to the patient's prior CT scan from September 03, 2015. 2. Mild diffuse volume loss. 3. Minimal mucosal thickening ethmoid air cells. .Kushal Wills MD, MD Date Time Electronically viewed and signed by .Kushal Wills MD, MD on 01/24/2017 03:53 .M/ CC: JERZY BAH PA-C Procedures/MDM This is a 56-year-old male who presents the emergency department today complaining of headache and dizziness for the past 2 days. Patient does not report usual headaches and has not had them in the past and therefore did obtain a head CT scan as well as EKG given patient's dizziness complaint. Head CT noncontrast shows intracranial contents without significant interval change compared to patient's prior CT scan from 2016. No evidence for mass- effect or midline shift. There is minimal mucosal thickening within the ethmoid air cells bilaterally. The mastoid air cells with significant soft tissues. There is mild diffuse volume loss. EKG read and interpreted by Dr. Can. Rate [address] elevation. No QT prolongation. Normal sinus rhythm. Low suspicion for acute [place], PE, pericarditis. Symptoms at this time is consistent with headache and dizziness. Patient was given Toradol and meclizine here in the emergency department and reported feeling significantly better. He was requesting to go home. Patient was given a prescription for short course of Kenna,Naprosyn meclizine for home. At this time the patient is stable for discharge and outpatient management. Patient should follow up with their PCP in the next 1-2 days. They may return to the emergency department sooner for any persistent or worsening of symptoms. Patient understood and agreed with the plan. Discussed the patient with Dr. Can and he is in agreement with the plan JERZY BAH PA-C Jan 24, 2017 03:57
[2017-01-24] MEDS ORDERED: KETOROLAC 30 MG INJ IM STA (03:58)
[2017-01-24] MEDS ORDERED: HYDR-906 PO (04:55)
[2017-01-24] MEDS ORDERED: NAPR-260 PO (04:56)
[2017-01-24] MEDS ORDERED: MECL12.574 PO (04:56)
[2017-01-24 05:00] VITALS: BP 124/82; PULSE 75; RESP 20
== END 2017-01-24 05:00 | disposition home or self-care (01) ==
LOC: FTE 01:45
DX: R51 Headache (principal); R42 Dizziness and giddiness; I10 Essential (primary) hypertension; F17.210 Nicotine dependence, cigarettes, uncomplicated; Z79.4 Long term (current) use of insulin; Z79.82 Long term (current) use of aspirin; Z79.84 Long term (current) use of oral hypoglycemic drugs; Z98.61 Coronary angioplasty status
CPT/HCPCS: 70450; 93005; 96372; J1885; Z7502; Z7610

== ENCOUNTER 2017-06-28 00:23 | Emergency (ER) | END 2017-06-28 04:14 | disposition home or self-care (01) ==

== ENCOUNTER 2017-08-09 00:25 | Emergency (ER) | END 2017-08-09 03:43 | disposition home or self-care (01) ==

== ENCOUNTER 2018-01-30 21:30 | Emergency (ER) | END 2018-01-31 01:35 | disposition home or self-care (01) ==

== ENCOUNTER 2018-06-15 02:01 | Inpatient (IN) | payer OTHER ==
[~2018-06-15] VITALS: Ht 170.2 cm; Wt 87.0 kg
[~2018-06-15 02:01] MED LIST changes: +ACET500C5 PO; -ASPI-664 PO; +ASPI-817 PO; +HYDR-4011 PO; -ISOS30TA5 PO; +ISOS30TA67 PO; +MAGN400O19 PO; -MAGN400O4 PO; +MECL12.574 PO; +METF-849 PO; -METF500T4 PO; +NAPR-985 PO; -PARO10TA26 PO; +PARO10TA57 PO; +PIOG30TA12 PO; -PIOG30TA2 PO
[2018-06-15 02:16] VITALS: Ht 170.2 cm; Wt 87.0 kg
[2018-06-15] MEDS ORDERED: SOD CHLORIDE 0.9% 500 ML IV STA (02:19)
[2018-06-15] MEDS ORDERED: ONDANSETRON 4 MG INJ IV STA (02:19)
[2018-06-15] MEDS ORDERED: morphine 4 MG/ML VIAL IV STA (02:19)
--- NOTE | 2018-06-15 05:45 | ERD ---
ER Documentation Chief Complaint Chief Complaint RUQ ab pain x4dasy,diarrhea x 1day; hx DM HPI This is a 57-year-old right upper quadrant abdominal pain for 4 days with diarrhea for 1 day. Patient has history of diabetes mellitus. Pain is mild to moderate intensity no exacerbating relieving factors. Denies fevers or chills. Denies any blood in his vomit. Denies any other current issues. ROS All systems reviewed and are negative except as per history of present illness. Medications Home Meds Active Scripts Naproxen* (Naprosyn*) 500 Mg Tablet, 500 MG PO BID PRN for PAIN AND/OR INFLAMMATION, #30 TAB Prov:FRANCES MAYNARD PA-C 01/31/18 Acetaminophen* (Tylophen*) 500 Mg Capsule, 1 CAP PO Q6H PRN for PAIN AND OR ELEVATED TEMP, #20 CAP Prov:RUPERT ARELLANO PA-C 08/09/17 Meclizine Hcl* (Antivert*) 12.5 Mg Tab, 12.5 MG PO Q6H PRN for DIZZINESS, #20 TAB Prov:RUPERT ARELLANO PA-C 08/09/17 Naproxen* (Naprosyn*) 500 Mg Tablet, 500 MG PO BID PRN for PAIN AND/OR INFLAMMATION, #30 TAB Prov:JERZY BAH PA-C 01/24/17 Meclizine Hcl* (Antivert*) 12.5 Mg Tab, 12.5 MG PO Q6H PRN for DIZZINESS, #20 TAB Prov:JERZY BAH PA-C 01/24/17 Hydrocodone/Acetaminophen ([place] 5-325 Tablet) 1 Each Tablet, 1 TAB PO Q6H PRN for PAIN, #10 TAB Prov:JERZY BAH PA-C 01/24/17 Magnesium Hydroxide* (Milk Of Magnesia*) 400 Mg/5 Ml Oral.susp, 30 ML PO DAILY for 7 Days, #1 BOTTLE Prov:DONNA CASEY MD 06/26/16 Polyethylene Glycol* (Miralax*) 17 Gm Powd.pack, 17 GM PO DAILY, #30 PACKET Prov:DONNA CASEY MD 06/26/16 Paroxetine Hcl* (Paxil*) 10 Mg Tab, 10 MG PO DAILY for 30 Days Prov:NADER LINN 12/02/14 Isosorbide Mononitrate* (Isosorbide Mononitrate*) 30 Mg Tabsr, 30 MG PO DAILY for 30 Days Prov:NADER LINN 12/02/14 Aspirin* (Aspirin* EC) 81 Mg Tabec, 81 MG PO DAILY for 30 Days Prov:NADER LINN 12/02/14 Reported Medications Omeprazole* (Omeprazole*) 40 Mg Capsule.dr, 40 MG PO DAILY, #30 CAP 06/26/16 Pioglitazone Hcl* (Actos*) 30 Mg Tablet, 30 MG PO DAILY, #30 TAB 06/26/16 Simvastatin* (Zocor*) 20 Mg Tablet, 20 MG PO QHS, #30 TAB 06/26/16 Insulin Glargine* (Lantus*) 100 Unit/Ml Soln, 45 UNIT SC QHS, #1 VIAL 06/26/16 Gabapentin* (Gabapentin*) 600 Mg Tablet, 600 MG PO TID, #90 TAB 04/21/15 Docusate Sodium* (Colace*) 100 Mg Capsule, 100 MG PO DAILY 10/30/12 Metformin* (Glucophage*) 500 Mg Tab, 1000 MG PO BID 09/05/11 Allergies Allergies: Coded Allergies: Penicillins (Unverified Allergy, Unknown, 06/26/16) PMhx/Soc History of Surgery: Yes (Umbilical&Inguinal Hernia Repairs) Anesthesia Reaction: No Hx Neurological Disorder: No Hx Respiratory Disorders: No Hx Psychiatric Problems: Yes (Anxiety) Hx Alcohol Use: No Hx Substance Use: No Hx Tobacco Use: Yes Smoking Status: Current every day smoker Physical Exam Vitals Vital Signs Date Temp Pulse Resp B/P (MAP) Pulse Ox O2 O2 Flow FiO2 Time Delivery Rate 06/15/18 56 13 103/51 96 Room Air 05:30 (68) 06/15/18 97.8 61 15 116/68 97 Room Air 03:45 (84) 06/15/18 98.0 76 17 147/72 100 Room Air 02:59 (97) 06/15/18 97.0 67 16 145/71 99 02:16 (95) Physical Exam Const: No acute distress Head: Atraumatic Eyes: Normal Conjunctiva ENT: Normal External Ears, Nose and Mouth. Neck: Full range of motion. No meningismus. Resp: Clear to auscultation bilaterally Cardio: Regular rate and rhythm, no murmurs Abd: Soft, non tender, non distended. Normal bowel sounds Skin: No petechiae or rashes Back: No midline or flank tenderness Ext: No cyanosis, or edema Neur: Awake and alert Psych: Normal Mood and Affect Result Diagram: 06/15/18 0254 06/15/18 0254 Results 24 hrs Laboratory Tests Test 06/15/18 02:54 White Blood Count 11.7 10^3/ul Red Blood Count 4.79 10^6/ul Hemoglobin 14.5 g/dl Hematocrit 43.0 % Mean Corpuscular Volume 89.8 fl Mean Corpuscular Hemoglobin 30.3 pg Mean Corpuscular Hemoglobin Concent 33.7 g/dl Red Cell Distribution Width 14.2 % Platelet Count 217 10^3/UL Mean Platelet Volume 9.4 fl Immature Granulocytes % 0.400 % Neutrophils % 47.8 % Lymphocytes % 31.2 % Monocytes % 6.2 % Eosinophils % 13.5 % Basophils % 0.9 % Nucleated Red Blood Cells % 0.0 /100WBC Immature Granulocytes # 0.050 10^3/ul Neutrophils # 5.6 10^3/ul Lymphocytes # 3.7 10^3/ul Monocytes # 0.7 10^3/ul Eosinophils # 1.6 10^3/ul Basophils # 0.1 10^3/ul Nucleated Red Blood Cells # 0.0 10^3/ul Urine Color YELLOW Urine Clarity CLEAR Urine pH 5.0 Urine Specific [place] 1.018 Urine Ketones NEGATIVE mg/dL Urine Nitrite NEGATIVE mg/dL Urine Bilirubin NEGATIVE mg/dL Urine Urobilinogen NEGATIVE mg/dL Urine Leukocyte Esterase NEGATIVE Doug/ul Urine Hemoglobin NEGATIVE mg/dL Urine Glucose 3+ mg/dL Urine Total Protein NEGATIVE mg/dl Sodium Level 137 mmol/L Potassium Level 4.1 mmol/L Chloride Level 102 mmol/L Carbon Dioxide Level 23 mmol/L Anion Gap 12 Blood Urea Nitrogen 14 mg/dl Creatinine 0.55 mg/dl Est Glomerular Filtrat Rate mL/min > 60 mL/min Glucose Level 300 mg/dl Calcium Level 9.6 mg/dl Total Bilirubin 0.4 mg/dl Direct Bilirubin 0.00 mg/dl Indirect Bilirubin 0.4 mg/dl Aspartate Amino Transf (AST/SGOT) 20 IU/L Alanine Aminotransferase (ALT/SGPT) 20 IU/L Alkaline Phosphatase 100 IU/L Total Protein 7.5 g/dl Albumin 4.4 g/dl Globulin 3.10 g/dl Albumin/Globulin Ratio 1.41 Lipase 968 U/L Current Medications Medications Dose Sig/Antonia Start Time Status Last (Trade) Ordered Route PRN Stop Time Admin Dose Reason Admin Sodium 500 ml @ Q1H STAT 06/15/18 DC 06/15/18 Chloride 500 mls/hr IV 02: 02:45 06/15/18 03:18 Morphine 4 mg ONCE STAT 06/15/18 DC 06/15/18 Sulfate IV 02: 02:45 (morphine) 06/15/18 02:20 Ondansetron 4 mg ONCE STAT 06/15/18 DC 06/15/18 HCl (Zofran IV 02: 02:45 Inj) 06/15/18 02:20 Procedures/MDM EKG: Rate/Rhythm: [Normal Sinus Rhythm] QRS, ST, T-waves: [No changes consistent w/ acute ischemia] Impression: [No evidence of ischemia or arrhythmia] Medical decision making: This very pleasant patient has likely acute pancreatitis. At this point patient will be admitted to the hospitalist group. Patient's pain is resolved during his stay in the emergency department. Departure Diagnosis: Primary Impression: Abdominal pain Abdominal location: unspecified location Qualified Codes: R10.9 - Unspecified abdominal pain Condition: Serious FRANCES OHKayla Jun 15, 2018 05:45
[2018-06-15] MEDS ORDERED: DEXTROSE 5%-0.45% NACL 1,000 ML IV SCH (06:48)
[2018-06-15] MEDS ORDERED: INSULIN DETEMIR [LEVEMIR] (100 UNITS/ML) SYG SC SCH (07:00)
[2018-06-15] MEDS ORDERED: ONDANSETRON 4 MG INJ IV PRN (07:00)
[2018-06-15] MEDS ORDERED: NACL 0.9% 3 ML SYG IV SCH (07:00)
--- NOTE | 2018-06-15 07:00 | HP ---
Date/Time of Note Date/Time of Note DATE: 06/15/18 TIME: 06:56 Assessment/Plan VTE Prophylaxis SCD applied (from Nsg): Yes Pharmacological prophylaxis: NA/contraindicated Pharm contraindication: low risk/ambulating Lines/Catheters IV Catheter Type (from Nrsg): Saline Lock Assessment/Plan Assessment/Plan 1. Abdominal pain with pain, with N/V and diarrhea, most likely secondary to pancreatitis -CT shows bladder wall thickening and moderate stool. No gallbladder or biliary tree abnormality noted -Keep n.p.o. with IV fluid -Pain meds and antiemetics as needed -Check triglycerides 2. Diabetes with hyperglycemia: IV fluid, insulin -Check A1c 3. CAD with stent: Resume home meds when no longer n.p.o. 4. Hypertension: BP was in acceptable range. IV antihypertensives as needed while n.p.o. Result Diagram: 06/15/18 0254 06/15/18 0254 Results 24hrs Laboratory Tests Test 06/15/18 02:54 White Blood Count 11.7 H Red Blood Count 4.79 Hemoglobin 14.5 Hematocrit 43.0 Mean Corpuscular Volume 89.8 Mean Corpuscular Hemoglobin 30.3 Mean Corpuscular Hemoglobin Concent 33.7 Red Cell Distribution Width 14.2 Platelet Count 217 Mean Platelet Volume 9.4 Immature Granulocytes % 0.400 Neutrophils % 47.8 Lymphocytes % 31.2 Monocytes % 6.2 Eosinophils % 13.5 H Basophils % 0.9 Nucleated Red Blood Cells % 0.0 Immature Granulocytes # 0.050 H Neutrophils # 5.6 Lymphocytes # 3.7 H Monocytes # 0.7 Eosinophils # 1.6 H Basophils # 0.1 Nucleated Red Blood Cells # 0.0 Urine Color YELLOW Urine Clarity CLEAR Urine pH 5.0 Urine Specific [place] 1.018 Urine Ketones NEGATIVE Urine Nitrite NEGATIVE Urine Bilirubin NEGATIVE Urine Urobilinogen NEGATIVE Urine Leukocyte Esterase NEGATIVE Urine Hemoglobin NEGATIVE Urine Glucose 3+ H Urine Total Protein NEGATIVE Sodium Level 137 Potassium Level 4.1 Chloride Level 102 Carbon Dioxide Level 23 Anion Gap 12 Blood Urea Nitrogen 14 Creatinine 0.55 L Est Glomerular Filtrat Rate mL/min > 60 Glucose Level 300 H Calcium Level 9.6 Total Bilirubin 0.4 Direct Bilirubin 0.00 Indirect Bilirubin 0.4 Aspartate Amino Transf (AST/SGOT) 20 Alanine Aminotransferase (ALT/SGPT) 20 Alkaline Phosphatase 100 Total Protein 7.5 Albumin 4.4 Globulin 3.10 Albumin/Globulin Ratio 1.41 Lipase 968 H HPI/ROS Admit Date/Time Admit Date/Time Hx of Present Illness This is a 57-year-old male with a history of diabetes, hypertension, CAD with stent who presents the ER complaining of abdominal pain. Pain is mainly localized in the right upper quadrant area and has been going on for the past several days. He also reported nausea, vomiting and diarrhea. Emesis is described as nonbloody and nonbilious and diarrhea as loose and watery. Denied fever/chills. When presented to ER, CT abdomen/pelvis shows bladder wall thickening and moderate stool. His lipase was elevated, almost 1000. LFTs WNL. Initial glucose 300. UA not consistent with UTI. PMH/Family/Social Past Medical History Past Surgical History Past Surgical Hx: other (see hpi) Family History Significant Family History: no pertinent family hx Social History Alcohol Use: other Smoking Status: Unknown if ever smoked Drug Use: other Exam Constitutional: other (no acute distress) Eyes: PERRL ENMT: nl external ears & nose Neck: supple Respiratory: normal air movement Cardiovascular: nl pulses Gastrointestinal: soft Extremities: normal pulses Medications Current Medications Dextrose/Sodium Chloride 1,000 ml @ 125 mls/hr Q8H IV ; Start 06/15/18 at 06:48 IV Flush (NS 3 ml) 3 ml PER PROTOCOL IV ; Start 06/15/18 at 07:00 Ondansetron HCl (Zofran Inj) 4 mg Q6H PRN IV NAUSEA/VOMITING; Start 06/15/18 at 07:00 Morphine Sulfate (morphine) 2 mg Q4H PRN IV .SEVERE PAIN 7-10; Start 06/15/18 at 07:00 Coded Allergies: Penicillins (Unverified Allergy, Unknown, 06/26/16) Social History Smoking Status: Current every day smoker Exam/Review of Systems Vital Signs Vitals Vital Signs Date Temp Pulse Resp B/P (MAP) Pulse Ox O2 O2 Flow FiO2 Time Delivery Rate 06/15/18 56 13 103/51 96 Room Air 05:30 (68) 06/15/18 97.8 03:45 FRANCES POOLE MD Jun 15, 2018 07:00
[2018-06-15 07:45] VITALS: BP 129/59; PULSE 60; RESP 18
[2018-06-15] MEDS ORDERED: GLUCOSE GEL 15 GRAM TUBE BUCCAL PRN (08:00)
[2018-06-15] MEDS ORDERED: GLUCAGON 1 MG INJ IM PRN (08:00)
[2018-06-15] MEDS ORDERED: DEXTROSE 50% 50 ML SYRINGE IV PRN ×2 (08:00)
[2018-06-15] MEDS ORDERED: GLUCOSE GEL 15 GRAM TUBE PO PRN ×2 (08:00)
[2018-06-15] MEDS: morphine 2 MG INJ IV PRN ×3 (08:03→18:20)
[2018-06-15] MEDS: INSULIN ASPART [NOVOLOG] 3 ML PEN SC SCH ×2 (10:34→13:00)
--- NOTE | 2018-06-15 11:01 | PN ---
Date/Time of Note Date/Time of Note DATE: 06/15/18 TIME: 11:00 Assessment/Plan VTE Prophylaxis SCD contraindicated: low risk/ambulating Pharmacological prophylaxis: NA/contraindicated Pharm contraindication: low risk/ambulating Lines/Catheters IV Catheter Type (from Nrsg): Saline Lock Assessment/Plan Hospital Course SUBJECTIVE: Denies any pain at this time. OBJECTIVE: Physical Exam General: Adequately build 57 year-old male lying in bed in no apparent distress. HEENT: Normocephalic, atraumatic. Eyes: Anicteric sclerae, conjunctivae clear. ENT: Nasal septum midline, oral mucosa moist. Neck supple, no JVD noticed. Respiratory: Bilaterally clear breath sounds. No use of accessory muscles of respiration. No adventitious breath sounds. Cardiovascular: S1, S2 heard. No murmurs or gallops. Abdomen: Soft and nondistended. Minimal right upper quadrant tenderness. Bowel sounds positive in all 4 quadrants. Genitourinary: Deferred. Extremities: No cyanosis, no clubbing, no edema. Peripheral pulses palpable. Neurologic: Cranial nerves II through XII grossly intact. The patient is awake, alert, and oriented. Skin: Normal skin turgor. No skin rashes. Labs & Vitals per chart ASSESSMENT & PLAN 57-year-old male with comorbidities including diabetes mellitus type 2, CAD status post coronary artery stenting, and obesity. The patient came to the emergency room with chief complaint of abdominal pain. CT scan of the abdomen and pelvis was showing mild urinary bladder wall thickening with no evidence of obstructive uropathy and moderate amount of stool throughout the colon. The patient's pancreatic lipase level was elevated. The patient was admitted to inpatient setting for further treatment and evaluation. 1. Acute abdominal pain. -Etiology unclear. -Most probably secondary to underlying pancreatitis. -Obtain right upper quadrant ultrasound to further evaluate the possible sludge evident on the CT scan. -N.p.o. 2. Diabetes mellitus type II. -Continue sliding scale insulin along with basal insulin. -Obtain A1C. 3. CAD, status post coronary artery stenting. -Continue cardiac medications. 4. Fluids, electrolytes, and nutrition. -N.p.o. except for medications 5. DVT prophylaxis. -Bilateral SCDs. 6. Plan. -Continue pain control. -Obtain a liver ultrasound. The patient was seen in collaboration with Dr. Garay. Result Diagram: 06/15/18 0254 06/15/18 0254 Results 24hrs Laboratory Tests Test 06/15/18 02:54 06/15/18 08:31 06/15/18 10:32 White Blood Count 11.7 H Red Blood Count 4.79 Hemoglobin 14.5 Hematocrit 43.0 Mean Corpuscular Volume 89.8 Mean Corpuscular Hemoglobin 30.3 Mean Corpuscular Hemoglobin Concent 33.7 Red Cell Distribution Width 14.2 Platelet Count 217 Mean Platelet Volume 9.4 Immature Granulocytes % 0.400 Neutrophils % 47.8 Lymphocytes % 31.2 Monocytes % 6.2 Eosinophils % 13.5 H Basophils % 0.9 Nucleated Red Blood Cells % 0.0 Immature Granulocytes # 0.050 H Neutrophils # 5.6 Lymphocytes # 3.7 H Monocytes # 0.7 Eosinophils # 1.6 H Basophils # 0.1 Nucleated Red Blood Cells # 0.0 Urine Color YELLOW Urine Clarity CLEAR Urine pH 5.0 Urine Specific [place] 1.018 Urine Ketones NEGATIVE Urine Nitrite NEGATIVE Urine Bilirubin NEGATIVE Urine Urobilinogen NEGATIVE Urine Leukocyte Esterase NEGATIVE Urine Hemoglobin NEGATIVE Urine Glucose 3+ H Urine Total Protein NEGATIVE Sodium Level 137 Potassium Level 4.1 Chloride Level 102 Carbon Dioxide Level 23 Anion Gap 12 Blood Urea Nitrogen 14 Creatinine 0.55 L Est Glomerular Filtrat Rate mL/min > 60 Glucose Level 300 H Calcium Level 9.6 Total Bilirubin 0.4 Direct Bilirubin 0.00 Indirect Bilirubin 0.4 Aspartate Amino Transf (AST/SGOT) 20 Alanine Aminotransferase (ALT/SGPT) 20 Alkaline Phosphatase 100 Total Protein 7.5 Albumin 4.4 Globulin 3.10 Albumin/Globulin Ratio 1.41 Lipase 968 H Bedside Glucose 221 H 254 H Exam/Review of Systems Exam Vitals Vital Signs Date Temp Pulse Resp B/P (MAP) Pulse Ox O2 O2 Flow FiO2 Time Delivery Rate 06/15/18 98.5 60 18 129/59 98 Room Air 07:45 (82) Results Results 24hrs Laboratory Tests Test 06/15/18 02:54 06/15/18 08:31 06/15/18 10:32 White Blood Count 11.7 H Red Blood Count 4.79 Hemoglobin 14.5 Hematocrit 43.0 Mean Corpuscular Volume 89.8 Mean Corpuscular Hemoglobin 30.3 Mean Corpuscular Hemoglobin Concent 33.7 Red Cell Distribution Width 14.2 Platelet Count 217 Mean Platelet Volume 9.4 Immature Granulocytes % 0.400 Neutrophils % 47.8 Lymphocytes % 31.2 Monocytes % 6.2 Eosinophils % 13.5 H Basophils % 0.9 Nucleated Red Blood Cells % 0.0 Immature Granulocytes # 0.050 H Neutrophils # 5.6 Lymphocytes # 3.7 H Monocytes # 0.7 Eosinophils # 1.6 H Basophils # 0.1 Nucleated Red Blood Cells # 0.0 Urine Color YELLOW Urine Clarity CLEAR Urine pH 5.0 Urine Specific [place] 1.018 Urine Ketones NEGATIVE Urine Nitrite NEGATIVE Urine Bilirubin NEGATIVE Urine Urobilinogen NEGATIVE Urine Leukocyte Esterase NEGATIVE Urine Hemoglobin NEGATIVE Urine Glucose 3+ H Urine Total Protein NEGATIVE Sodium Level 137 Potassium Level 4.1 Chloride Level 102 Carbon Dioxide Level 23 Anion Gap 12 Blood Urea Nitrogen 14 Creatinine 0.55 L Est Glomerular Filtrat Rate mL/min > 60 Glucose Level 300 H Calcium Level 9.6 Total Bilirubin 0.4 Direct Bilirubin 0.00 Indirect Bilirubin 0.4 Aspartate Amino Transf (AST/SGOT) 20 Alanine Aminotransferase (ALT/SGPT) 20 Alkaline Phosphatase 100 Total Protein 7.5 Albumin 4.4 Globulin 3.10 Albumin/Globulin Ratio 1.41 Lipase 968 H Bedside Glucose 221 H 254 H Medications Medication Current Medications IV Flush (NS 3 ml) 3 ml PER PROTOCOL IV ; Start 06/15/18 at 07:00 Ondansetron HCl (Zofran Inj) 4 mg Q6H PRN IV NAUSEA/VOMITING; Start 06/15/18 at 07:00 Morphine Sulfate (morphine) 2 mg Q4H PRN IV .SEVERE PAIN 7-10 Last administered on 06/15/18at 08:03; Admin Dose 2 MG; Start 06/15/18 at 07:00 Diagnostic Test (Pha) (Accu-Chek) 1 ea 02 XX ; Start 06/16/18 at 02:00 Insulin Detemir (Levemir) 15 units DAILY@0800 SC Last administered on 06/15/18at 10:34; Admin Dose 15 UNITS; Start 06/15/18 at 07:00 Insulin Aspart (Novolog Insulin Pen) NOVOLOG *MODERATE* ALGORI... Q4 SC Last administered on 06/15/18at 10:34; Admin Dose 6 UNIT; Start 06/15/18 at 09:00 Miscellaneous Information 1 ea NOTE XX ; Start 06/15/18 at 08:00 Glucose (Glutose) 15 gm Q15M PRN PO DECREASED GLUCOSE; Start 06/15/18 at 08:00 Glucose (Glutose) 22.5 gm Q15M PRN PO DECREASED GLUCOSE; Start 06/15/18 at 08:00 Dextrose (D50w Syringe) 25 ml Q15M PRN IV DECREASED GLUCOSE; Start 06/15/18 at 08:00 Dextrose (D50w Syringe) 50 ml Q15M PRN IV DECREASED GLUCOSE; Start 06/15/18 at 08:00 Glucagon (Glucagen) 1 mg Q15M PRN IM DECREASED GLUCOSE; Start 06/15/18 at 08:00 Glucose (Glutose) 15 gm Q15M PRN BUCCAL DECREASED GLUCOSE; Start 06/15/18 at 08:00 Sodium Chloride 1,000 ml @ 100 mls/hr Q10H IV ; Start 06/15/18 at 11:00 Aspirin (Halfprin) 81 mg DAILY PO ; Start 06/16/18 at 09:00; Status UNV Gabapentin (Neurontin) 600 mg TID PO ; Start 06/15/18 at 13:00; Status UNV Isosorbide Mononitrate (Imdur) 30 mg DAILY PO ; Start 06/16/18 at 09:00; Status UNV Miscellaneous Information 20 mg QHS PO ; Start 06/15/18 at 21:00; Status UNV DOM ATWOOD NP Jun 15, 2018 11:01
[2018-06-15] MEDS: SOD CHLORIDE 0.9% 1,000 ML IV SCH ×2 (11:49→20:58)
[2018-06-15] MEDS: GABAPENTIN 300 MG CAP PO SCH ×2 (13:00→20:54)
[2018-06-15] MEDS ORDERED: INSULIN ASPART [NOVOLOG] 3 ML PEN SC SCH (17:25)
[2018-06-15] MEDS: Insulin NOVOLOG SS MODERATE Algorithm (SS with meals and bedtime) SC SCH ×2 (17:48→20:53)
[2018-06-15 19:09] VITALS: BP 113/62; PULSE 54; RESP 16
[2018-06-15] MEDS: ATORVASTATIN 10 MG TAB PO SCH (20:54)
[2018-06-15] MEDS ORDERED: NON-FORMULARY/PATIENT OWN MED (Simvastatin* (Zocor*) 20 MG) PO SCH (21:00)
[2018-06-15] MEDS ORDERED: LORAZEPAM 0.5 MG TAB PO ONE (21:30)
[2018-06-15] MEDS: NICOTINE (14 MG/24 HR) PATCH TRANSDERM SCH (22:00)
[2018-06-16] MEDS: NICOTINE (14 MG/24 HR) PATCH TRANSDERM SCH ×2 (01:13→14:11)
[2018-06-16] MEDS: morphine 2 MG INJ IV PRN ×5 (01:19→23:12)
[2018-06-16 01:28] VITALS: BP 99/55; PULSE 52; RESP 16
[2018-06-16] MEDS: ACCU-CHEK XX SCH (01:45)
[2018-06-16] MEDS ORDERED: ACCUCHECK AT 2AM (Patients on SS coverage) XX SCH (02:00)
[2018-06-16] MEDS: SOD CHLORIDE 0.9% 1,000 ML IV SCH ×2 (06:43→17:55)
[2018-06-16 07:23] VITALS: BP 112/60; PULSE 57; RESP 18
[2018-06-16] MEDS: Insulin NOVOLOG SS MODERATE Algorithm (SS with meals and bedtime) SC SCH ×4 (07:50→20:16)
[2018-06-16] MEDS: GABAPENTIN 300 MG CAP PO SCH ×3 (09:07→20:15)
[2018-06-16] MEDS: ASPIRIN (EC) 81 MG TAB PO SCH (09:08)
[2018-06-16] MEDS: ISOSORBIDE MONONITRATE(SR)30 MG TAB PO SCH (09:08)
--- NOTE | 2018-06-16 10:32 | PN ---
Date/Time of Note Date/Time of Note DATE: 06/16/18 TIME: 10:27 Assessment/Plan VTE Prophylaxis Risk score (from Nsg)>0 risk: 1 SCD applied (from Nsg): Yes Pharmacological prophylaxis: NA/contraindicated Pharm contraindication: low risk/ambulating Lines/Catheters IV Catheter Type (from Nrsg): Peripheral IV Urinary Cath still in place: No Assessment/Plan Hospital Course SUBJECTIVE: Had abdominal pain in the AM and received morphine. OBJECTIVE: Physical Exam General: Adequately build 57 year-old male lying in bed in no apparent distress. HEENT: Normocephalic, atraumatic. Eyes: Anicteric sclerae, conjunctivae clear. ENT: Nasal septum midline, oral mucosa moist. Neck supple, no JVD noticed. Respiratory: Bilaterally clear breath sounds. No use of accessory muscles of respiration. No adventitious breath sounds. Cardiovascular: S1, S2 heard. No murmurs or gallops. Abdomen: Soft and nondistended. Minimal right upper quadrant tenderness. Bowel sounds positive in all 4 quadrants. Genitourinary: Deferred. Extremities: No cyanosis, no clubbing, no edema. Peripheral pulses palpable. Neurologic: Cranial nerves II through XII grossly intact. The patient is awake, alert, and oriented. Skin: Normal skin turgor. No skin rashes. Labs & Vitals per chart ASSESSMENT & PLAN 57-year-old male with comorbidities including diabetes mellitus type 2, CAD status post coronary artery stenting, and obesity. The patient came to the emergency room with chief complaint of abdominal pain. CT scan of the abdomen and pelvis was showing mild urinary bladder wall thickening with no evidence of obstructive uropathy and moderate amount of stool throughout the colon. The patient's pancreatic lipase level was elevated. The patient was admitted to inpatient setting for further treatment and evaluation. 1. Acute abdominal pain. -Etiology unclear. -Most probably secondary to underlying pancreatitis (resolved). -Right upper quadrant ultrasound showing gallbladder sludge. LFTs within normal limits. -Obtain gastroenterology consult. 2. Diabetes mellitus type II. -Continue sliding scale insulin along with basal insulin. -A1C 10.9. 3. CAD, status post coronary artery stenting. -Continue cardiac medications. 4. Fluids, electrolytes, and nutrition. -Clear liquids. 5. DVT prophylaxis. -Bilateral SCDs. 6. Plan. -Continue pain control. -Obtain gastroenterology consult. Called the patient's daughter Araceli at [phone] and explained the plan of care. The patient was seen in collaboration with Dr. Garay. Result Diagram: 06/16/18 0434 06/16/18 0434 Results 24hrs Laboratory Tests Test 06/15/18 10:32 06/15/18 13:18 06/15/18 17:36 06/15/18 20:52 Bedside Glucose 254 H 171 133 169 Test 06/16/18 04:34 06/16/18 09:06 White Blood Count 9.9 Red Blood Count 4.32 L Hemoglobin 13.2 L Hematocrit 39.6 L Mean Corpuscular 91.7 Volume Mean Corpuscular 30.6 Hemoglobin Mean Corpuscular 33.3 Hemoglobin Concent Red Cell 14.3 Distribution Width Platelet Count 200 Mean Platelet Volume 9.9 Immature 0.200 Granulocytes % Neutrophils % 47.4 Lymphocytes % 30.0 Monocytes % 5.8 Eosinophils % 15.9 H Basophils % 0.7 Nucleated Red Blood 0.0 Cells % Immature 0.020 Granulocytes # Neutrophils # 4.7 Lymphocytes # 3.0 H Monocytes # 0.6 Eosinophils # 1.6 H Basophils # 0.1 Nucleated Red Blood 0.0 Cells # Sodium Level 142 Potassium Level 3.8 Chloride Level 105 Carbon Dioxide Level 27 Anion Gap 10 Blood Urea Nitrogen 12 Creatinine 0.58 L Est Glomerular > 60 Filtrat Rate mL/min Glucose Level 86 # Hemoglobin A1c 10.9 H Calcium Level 9.0 Phosphorus Level 5.1 H Magnesium Level 2.0 Total Bilirubin 0.6 Direct Bilirubin 0.00 Indirect Bilirubin 0.6 Aspartate Amino 22 Transf (AST/SGOT) Alanine 21 Aminotransferase (AL T/SGPT) Alkaline Phosphatase 78 Total Protein 6.4 # Albumin 3.6 Globulin 2.80 Albumin/Globulin 1.28 Ratio Triglycerides Level 104 Cholesterol Level 150 LDL Cholesterol, 103 Calculated HDL Cholesterol 26 L Cholesterol/HDL 5.7 Ratio Amylase Level 58 Lipase 89 Bedside Glucose 99 Exam/Review of Systems Exam Vitals Vital Signs Date Temp Pulse Resp B/P (MAP) Pulse Ox O2 O2 Flow FiO2 Time Delivery Rate 06/16/18 97.9 57 18 112/60 96 07:23 (77) 06/16/18 Room Air 01:28 Intake and Output 06/15/18 06/15/18 06/16/18 1515:00 23:00 07:00 IntakeIntake Total 300 ml 1750 ml 1000 ml BalanceBalance 300 ml 1750 ml 1000 ml Results Results 24hrs Laboratory Tests Test 06/15/18 10:32 06/15/18 13:18 06/15/18 17:36 06/15/18 20:52 Bedside Glucose 254 H 171 133 169 Test 06/16/18 04:34 06/16/18 09:06 White Blood Count 9.9 Red Blood Count 4.32 L Hemoglobin 13.2 L Hematocrit 39.6 L Mean Corpuscular 91.7 Volume Mean Corpuscular 30.6 Hemoglobin Mean Corpuscular 33.3 Hemoglobin Concent Red Cell 14.3 Distribution Width Platelet Count 200 Mean Platelet Volume 9.9 Immature 0.200 Granulocytes % Neutrophils % 47.4 Lymphocytes % 30.0 Monocytes % 5.8 Eosinophils % 15.9 H Basophils % 0.7 Nucleated Red Blood 0.0 Cells % Immature 0.020 Granulocytes # Neutrophils # 4.7 Lymphocytes # 3.0 H Monocytes # 0.6 Eosinophils # 1.6 H Basophils # 0.1 Nucleated Red Blood 0.0 Cells # Sodium Level 142 Potassium Level 3.8 Chloride Level 105 Carbon Dioxide Level 27 Anion Gap 10 Blood Urea Nitrogen 12 Creatinine 0.58 L Est Glomerular > 60 Filtrat Rate mL/min Glucose Level 86 # Hemoglobin A1c 10.9 H Calcium Level 9.0 Phosphorus Level 5.1 H Magnesium Level 2.0 Total Bilirubin 0.6 Direct Bilirubin 0.00 Indirect Bilirubin 0.6 Aspartate Amino 22 Transf (AST/SGOT) Alanine 21 Aminotransferase (AL T/SGPT) Alkaline Phosphatase 78 Total Protein 6.4 # Albumin 3.6 Globulin 2.80 Albumin/Globulin 1.28 Ratio Triglycerides Level 104 Cholesterol Level 150 LDL Cholesterol, 103 Calculated HDL Cholesterol 26 L Cholesterol/HDL 5.7 Ratio Amylase Level 58 Lipase 89 Bedside Glucose 99 Medications Medication Current Medications IV Flush (NS 3 ml) 3 ml PER PROTOCOL IV ; Start 06/15/18 at 07:00 Ondansetron HCl (Zofran Inj) 4 mg Q6H PRN IV NAUSEA/VOMITING; Start 06/15/18 at 07:00 Morphine Sulfate (morphine) 2 mg Q4H PRN IV .SEVERE PAIN 7-10 Last administered on 06/16/18at 06:47; Admin Dose 2 MG; Start 06/15/18 at 07:00 Diagnostic Test (Pha) (Accu-Chek) 1 ea 02 XX ; Start 06/16/18 at 02:00 Miscellaneous Information 1 ea NOTE XX ; Start 06/15/18 at 08:00 Glucose (Glutose) 15 gm Q15M PRN PO DECREASED GLUCOSE; Start 06/15/18 at 08:00 Glucose (Glutose) 22.5 gm Q15M PRN PO DECREASED GLUCOSE; Start 06/15/18 at 08:00 Dextrose (D50w Syringe) 25 ml Q15M PRN IV DECREASED GLUCOSE; Start 06/15/18 at 08:00 Dextrose (D50w Syringe) 50 ml Q15M PRN IV DECREASED GLUCOSE; Start 06/15/18 at 08:00 Glucagon (Glucagen) 1 mg Q15M PRN IM DECREASED GLUCOSE; Start 06/15/18 at 08:00 Glucose (Glutose) 15 gm Q15M PRN BUCCAL DECREASED GLUCOSE; Start 06/15/18 at 08:00 Sodium Chloride 1,000 ml @ 100 mls/hr Q10H IV Last administered on 06/16/18at 06:43; Admin Dose 100 MLS/HR; Start 06/15/18 at 11:00 Aspirin (Halfprin) 81 mg DAILY PO Last administered on 06/16/18at 09:08; Admin Dose 81 MG; Start 06/16/18 at 09:00 Gabapentin (Neurontin) 600 mg TID PO Last administered on 06/16/18at 09:07; Admin Dose 600 MG; Start 06/15/18 at 13:00 Isosorbide Mononitrate (Imdur) 30 mg DAILY PO Last administered on 06/16/18at 09:08; Admin Dose 30 MG; Start 06/16/18 at 09:00 Atorvastatin Calcium (Lipitor) 10 mg DAILY@21 PO Last administered on 06/15/18at 20:54; Admin Dose 10 MG; Start 06/15/18 at 21:00 Insulin Detemir (Levemir) 10 units DAILY@0800 SC ; Start 06/16/18 at 08:00 Insulin Aspart (Novolog Insulin Pen) (Adult SC Insulin - Moder... WITH MEALS BEDTIME SC ; Start 06/15/18 at 17:55 Nicotine (Nicoderm 14 Mg/ 24hr) 1 patch DAILY TRANSDERM Last administered on 06/16/18at 01:13; Admin Dose 1 PATCH; Start 06/15/18 at 21:30 DOM ATWOOD NP Jun 16, 2018 10:32
[2018-06-16] MEDS: INSULIN DETEMIR [LEVEMIR] (100 UNITS/ML) SYG SC SCH (10:58)
--- NOTE | 2018-06-16 13:11 | CONS ---
Assessment/Plan Assessment/Plan Hospital Course (Demo Recall) Summary Assessment and Plan: Assessment: Upper abdominal pain Nausea- resolved Elevated lipase- resolved DM- poorly controlled Pyrosis High cholesterol Hx of cardiac stent- 5 years ago Plan: Start PPI Currently on cl liq diet- NPO after 06/17 at 0800 EGD tomorrow [Endoscopy - risks/benefits/alternatives/indications of procedure and sedation/anesthesia discussed with patient who states understanding and gives informed consent to proceed. Per request of patient I also spoke to his daughter Marcy- discussed plan Patient seen in collaboration with DR. Coronado CC: PERFECTO CORONADO MD ; Consultation Date/Type/Reason Admit Date/Time Date of Consultation: Jun 16, 2018 Type of Consult GI Reason for Consultation Upper abdominal pain Date/Time of Note DATE: 06/16/18 TIME: 12:56 Hx of Present Illness This is a 57-year-old male with past medical history of poorly controlled diabetes, high cholesterol, and gastritis. Who presented to the hospital with complaints of severe upper abdominal pain located in the right upper quadrant radiating to the back associated with nausea and profuse diarrhea times 1 day. Patient denied overt signs of GI bleed including hematemesis, melena, or hematochezia. Initial labs on admission show an elevated lipase his labs were rechecked the following day they were within normal limits as well as a normal amylase. Additionally imaging was obtained CT abdomen pelvis without contrast shows the liver, pancreas, and spleen are unremarkable there is probable sludge in the gallbladder, moderate amount of stool throughout the colon, mild urinary bladder wall thickening. Patient has been started on a clear liquid diet tolerating fairly. He complains still of right upper quadrant pain as well as chest pain however with examination there is no right upper quadrant pain noted and patient does grimace and complain of pain with pressure applied to the gastric area. This could be residual from possible pancreatitis versus gastritis versus PUD given history of pyrosis and gastritis we will proceed with an EGD tomorrow discussed need to be n.p.o. reviewed risk/benefits of both sedation and procedure patient verbalized understanding is agreeable to procedure. Review of Systems: A 12 system, review was conducted and is negative except as noted in the HPI or here. Past Medical History Home Meds Active Scripts Naproxen* (Naprosyn*) 500 Mg Tablet, 500 MG PO BID PRN for PAIN AND/OR INFLAMMATION, #30 TAB Prov:FRANCES MAYNARD PA-C 01/31/18 Acetaminophen* (Tylophen*) 500 Mg Capsule, 1 CAP PO Q6H PRN for PAIN AND OR ELEVATED TEMP, #20 CAP Prov:RUPERT ARELLANO PA-C 08/09/17 Meclizine Hcl* (Antivert*) 12.5 Mg Tab, 12.5 MG PO Q6H PRN for DIZZINESS, #20 TAB Prov:RUPERT ARELLANOC 08/09/17 Naproxen* (Naprosyn*) 500 Mg Tablet, 500 MG PO BID PRN for PAIN AND/OR INFLAMMATION, #30 TAB Prov:JERZY BAH PA-C 01/24/17 Meclizine Hcl* (Antivert*) 12.5 Mg Tab, 12.5 MG PO Q6H PRN for DIZZINESS, #20 TAB Prov:JERZY BAH PA-C 01/24/17 Hydrocodone/Acetaminophen (Inez 5-325 Tablet) 1 Each Tablet, 1 TAB PO Q6H PRN for PAIN, #10 TAB Prov:JERZY BAH PA-C 01/24/17 Magnesium Hydroxide* (Milk Of Magnesia*) 400 Mg/5 Ml Oral.susp, 30 ML PO DAILY for 7 Days, #1 BOTTLE Prov:DONNA CASEY MD 06/26/16 Polyethylene Glycol* (Miralax*) 17 Gm Powd.pack, 17 GM PO DAILY, #30 PACKET Prov:DONNA CASEY MD 06/26/16 Paroxetine Hcl* (Paxil*) 10 Mg Tab, 10 MG PO DAILY for 30 Days Prov:NADER LINN 12/02/14 Isosorbide Mononitrate* (Isosorbide Mononitrate*) 30 Mg Tabsr, 30 MG PO DAILY for 30 Days Prov:NADER LINN 12/02/14 Aspirin* (Aspirin* EC) 81 Mg Tabec, 81 MG PO DAILY for 30 Days Prov:NADER LINN 12/02/14 Reported Medications Omeprazole* (Omeprazole*) 40 Mg Capsule.dr, 40 MG PO DAILY, #30 CAP 06/26/16 Pioglitazone Hcl* (Actos*) 30 Mg Tablet, 30 MG PO DAILY, #30 TAB 06/26/16 Simvastatin* (Zocor*) 20 Mg Tablet, 20 MG PO QHS, #30 TAB 06/26/16 Insulin Glargine* (Lantus*) 100 Unit/Ml Soln, 45 UNIT SC QHS, #1 VIAL 06/26/16 Gabapentin* (Gabapentin*) 600 Mg Tablet, 600 MG PO TID, #90 TAB 04/21/15 Docusate Sodium* (Colace*) 100 Mg Capsule, 100 MG PO DAILY 10/30/12 Metformin* (Glucophage*) 500 Mg Tab, 1000 MG PO BID 09/05/11 Medications Current Medications IV Flush (NS 3 ml) 3 ml PER PROTOCOL IV ; Start 06/15/18 at 07:00 Ondansetron HCl (Zofran Inj) 4 mg Q6H PRN IV NAUSEA/VOMITING; Start 06/15/18 at 07:00 Morphine Sulfate (morphine) 2 mg Q4H PRN IV .SEVERE PAIN 7-10 Last administered on 06/16/18at 06:47; Admin Dose 2 MG; Start 06/15/18 at 07:00 Diagnostic Test (Pha) (Accu-Chek) 1 ea 02 XX ; Start 06/16/18 at 02:00 Miscellaneous Information 1 ea NOTE XX ; Start 06/15/18 at 08:00 Glucose (Glutose) 15 gm Q15M PRN PO DECREASED GLUCOSE; Start 06/15/18 at 08:00 Glucose (Glutose) 22.5 gm Q15M PRN PO DECREASED GLUCOSE; Start 06/15/18 at 08:00 Dextrose (D50w Syringe) 25 ml Q15M PRN IV DECREASED GLUCOSE; Start 06/15/18 at 08:00 Dextrose (D50w Syringe) 50 ml Q15M PRN IV DECREASED GLUCOSE; Start 06/15/18 at 08:00 Glucagon (Glucagen) 1 mg Q15M PRN IM DECREASED GLUCOSE; Start 06/15/18 at 08:00 Glucose (Glutose) 15 gm Q15M PRN BUCCAL DECREASED GLUCOSE; Start 06/15/18 at 08:00 Sodium Chloride 1,000 ml @ 100 mls/hr Q10H IV Last administered on 06/16/18at 06:43; Admin Dose 100 MLS/HR; Start 06/15/18 at 11:00 Aspirin (Halfprin) 81 mg DAILY PO Last administered on 06/16/18at 09:08; Admin Dose 81 MG; Start 06/16/18 at 09:00 Gabapentin (Neurontin) 600 mg TID PO Last administered on 06/16/18at 12:41; A dmin Dose 600 MG; Start 06/15/18 at 13:00 Isosorbide Mononitrate (Imdur) 30 mg DAILY PO Last administered on 06/16/18at 09:08; Admin Dose 30 MG; Start 06/16/18 at 09:00 Atorvastatin Calcium (Lipitor) 10 mg DAILY@21 PO Last administered on 06/15/18 20:54; Admin Dose 10 MG; Start 06/15/18 at 21:00 Insulin Detemir (Levemir) 10 units DAILY@0800 SC Last administered on 06/16/18at 10:58; Admin Dose 10 UNITS; Start 06/16/18 at 08:00 Insulin Aspart (Novolog Insulin Pen) (Adult SC Insulin - Moder... WITH MEALS BEDTIME SC ; Start 06/15/18 at 17:55 Nicotine (Nicoderm 14 Mg/ 24hr) 1 patch DAILY TRANSDERM Last administered on 06/16/18at 01:13; Admin Dose 1 PATCH; Start 06/15/18 at 21:30 Allergies: Coded Allergies: Penicillins (Unverified Allergy, Unknown, 06/26/16) Social History Smoking Status: Current every day smoker Exam/Review of Systems Exam Vitals Vital Signs Date Temp Pulse Resp B/P (MAP) Pulse Ox O2 O2 Flow FiO2 Time Delivery Rate 06/16/18 97.9 57 18 112/60 96 07:23 (77) 06/16/18 Room Air 01:28 Intake and Output 06/15/18 06/15/18 06/16/18 1515:00 23:00 07:00 IntakeIntake Total 300 ml 1750 ml 1000 ml BalanceBalance 300 ml 1750 ml 1000 ml Exam PHYSICAL EXAMINATION: GENERAL: Well developed, well nourished, alert & oriented x 3, in no acute distress SKIN: No lesions HEAD: Normocephalic, atraumatic, no tenderness. EYES: Pupils equal reactive to light, no discharge. EARS/NOSE AND THROAT: Ears normal, nose normal, oropharynx normal. NECK: Supple, no masses CHEST: Inspection within normal limits. CARDIOVASCULAR: Heart: Regular rate and rhythm RESPIRATORY: Lungs clear to auscultation GASTROINTESTINAL AND LIVER: Abdomen: Soft, epigastric tenderness, non-distended, no hernias, no masses, no organomegaly, no ascites, no guarding, no rebound tenderness, normoactive bowel sounds. Rectal: Deferred. Results Result Diagram: 06/16/18 0434 06/16/18 0434 Results 24hrs Laboratory Tests Test 06/15/18 13:18 06/15/18 17:36 06/15/18 20:52 06/16/18 04:34 Bedside Glucose 171 133 169 White Blood Count 9.9 Red Blood Count 4.32 L Hemoglobin 13.2 L Hematocrit 39.6 L Mean Corpuscular 91.7 Volume Mean Corpuscular 30.6 Hemoglobin Mean Corpuscular 33.3 Hemoglobin Concent Red Cell 14.3 Distribution Width Platelet Count 200 Mean Platelet Volume 9.9 Immature 0.200 Granulocytes % Neutrophils % 47.4 Lymphocytes % 30.0 Monocytes % 5.8 Eosinophils % 15.9 H Basophils % 0.7 Nucleated Red Blood 0.0 Cells % Immature 0.020 Granulocytes # Neutrophils # 4.7 Lymphocytes # 3.0 H Monocytes # 0.6 Eosinophils # 1.6 H Basophils # 0.1 Nucleated Red Blood 0.0 Cells # Sodium Level 142 Potassium Level 3.8 Chloride Level 105 Carbon Dioxide Level 27 Anion Gap 10 Blood Urea Nitrogen 12 Creatinine 0.58 L Est Glomerular > 60 Filtrat Rate mL/min Glucose Level 86 # Hemoglobin A1c 10.9 H Calcium Level 9.0 Phosphorus Level 5.1 H Magnesium Level 2.0 Total Bilirubin 0.6 Direct Bilirubin 0.00 Indirect Bilirubin 0.6 Aspartate Amino 22 Transf (AST/SGOT) Alanine 21 Aminotransferase (AL T/SGPT) Alkaline Phosphatase 78 Total Protein 6.4 # Albumin 3.6 Globulin 2.80 Albumin/Globulin 1.28 Ratio Triglycerides Level 104 Cholesterol Level 150 LDL Cholesterol, 103 Calculated HDL Cholesterol 26 L Cholesterol/HDL 5.7 Ratio Amylase Level 58 Lipase 89 Test 06/16/18 09:06 06/16/18 10:56 Bedside Glucose 99 103 Medications Medication Current Medications IV Flush (NS 3 ml) 3 ml PER PROTOCOL IV ; Start 06/15/18 at 07:00 Ondansetron HCl (Zofran Inj) 4 mg Q6H PRN IV NAUSEA/VOMITING; Start 06/15/18 at 07:00 Morphine Sulfate (morphine) 2 mg Q4H PRN IV .SEVERE PAIN 7-10 Last administered on 06/16/18 06:47; Admin Dose 2 MG; Start 06/15/18 at 07:00 Diagnostic Test (Pha) (Accu-Chek) 1 ea 02 XX ; Start 06/16/18 at 02:00 Miscellaneous Information 1 ea NOTE XX ; Start 06/15/18 at 08:00 Glucose (Glutose) 15 gm Q15M PRN PO DECREASED GLUCOSE; Start 06/15/18 at 08:00 Glucose (Glutose) 22.5 gm Q15M PRN PO DECREASED GLUCOSE; Start 06/15/18 at 08:00 Dextrose (D50w Syringe) 25 ml Q15M PRN IV DECREASED GLUCOSE; Start 06/15/18 at 08:00 Dextrose (D50w Syringe) 50 ml Q15M PRN IV DECREASED GLUCOSE; Start 06/15/18 at 08:00 Glucagon (Glucagen) 1 mg Q15M PRN IM DECREASED GLUCOSE; Start 06/15/18 at 08:00 Glucose (Glutose) 15 gm Q15M PRN BUCCAL DECREASED GLUCOSE; Start 06/15/18 at 08:00 Sodium Chloride 1,000 ml @ 100 mls/hr Q10H IV Last administered on 06/16/18 06:43; Admin Dose 100 MLS/HR; Start 06/15/18 at 11:00 Aspirin (Halfprin) 81 mg DAILY PO Last administered on 06/16/18 09:08; Admin Dose 81 MG; Start 06/16/18 at 09:00 Gabapentin (Neurontin) 600 mg TID PO Last administered on 06/16/18 12:41; Admin Dose 600 MG; Start 06/15/18 at 13:00 Isosorbide Mononitrate (Imdur) 30 mg DAILY PO Last administered on 06/16/18 09:08; Admin Dose 30 MG; Start 06/16/18 at 09:00 Atorvastatin Calcium (Lipitor) 10 mg DAILY@21 PO Last administered on 06/15/18 20:54; Admin Dose 10 MG; Start 06/15/18 at 21:00 Insulin Detemir (Levemir) 10 units DAILY@0800 SC Last administered on 3/19/19at 10:58; Admin Dose 10 UNITS; Start 06/16/18 at 08:00 Insulin Aspart (Novolog Insulin Pen) (Adult SC Insulin - Moder... WITH MEALS BEDTIME SC ; Start 06/15/18 at 17:55 Nicotine (Nicoderm 14 Mg/ 24hr) 1 patch DAILY TRANSDERM Last administered on 06/16/18at 01:13; Admin Dose 1 PATCH; Start 06/15/18 at 21:30 ESTER CONTRERAS Jun 16, 2018 13:06
[2018-06-16] MEDS ORDERED: HYOSCYAMINE 0.125 MG SUBL TAB SL PRN (14:00)
[2018-06-16 14:15] VITALS: BP 101/52; PULSE 64; RESP 18
[2018-06-16 20:05] VITALS: BP 137/70; PULSE 68; RESP 19
[2018-06-16] MEDS: ACETAMINOPHEN 325 MG TAB PO PRN (20:14)
[2018-06-16] MEDS: ATORVASTATIN 10 MG TAB PO SCH (20:14)
[2018-06-17] VITALS (11 sets, daily range): BP systolic 116–161; BP diastolic 50–77; PULSE 59–98; RESP 16–23
[2018-06-17] MEDS: ACCU-CHEK XX SCH (01:41)
[2018-06-17] MEDS: SOD CHLORIDE 0.9% 1,000 ML IV SCH (02:17)
[2018-06-17] MEDS: morphine 2 MG INJ IV PRN ×3 (04:07→12:28)
[2018-06-17] MEDS: ACETAMINOPHEN 325 MG TAB PO PRN ×2 (05:04→21:35)
[2018-06-17] MEDS ORDERED: PANTOPRAZOLE 40 MG INJ IV SCH (06:00)
[2018-06-17] MEDS: Insulin NOVOLOG SS MODERATE Algorithm (SS with meals and bedtime) SC SCH ×3 (07:50→21:22)
--- NOTE | 2018-06-17 08:23 | PN ---
Date/Time of Note Date/Time of Note DATE: 06/17/18 TIME: 08:19 Assessment/Plan VTE Prophylaxis Risk score (from Nsg)>0 risk: 1 SCD applied (from Nsg): Yes Pharmacological prophylaxis: NA/contraindicated Pharm contraindication: low risk/ambulating Lines/Catheters IV [facility]ter [facility]from [facility] Peripheral IV Urinary Cath still in place: No Assessment/Plan Hospital Course SUBJECTIVE: Complains of abdominal pain and head ache. OBJECTIVE: Physical Exam General: Adequately build 57 year-old male lying in bed in no apparent distress. HEENT: Normocephalic, atraumatic. Eyes: Anicteric sclerae, conjunctivae clear. ENT: Nasal septum midline, oral mucosa moist. Neck supple, no JVD noticed. Respiratory: Bilaterally clear breath sounds. No use of accessory muscles of respiration. No adventitious breath sounds. Cardiovascular: S1, S2 heard. No murmurs or gallops. Abdomen: Soft and nondistended. Minimal right upper quadrant tenderness. Bowel sounds positive in all 4 quadrants. Genitourinary: Deferred. Extremities: No cyanosis, no clubbing, no edema. Peripheral pulses palpable. Neurologic: Cranial nerves II through XII grossly intact. The patient is awake, alert, and oriented. Skin: Normal skin turgor. No skin rashes. Labs & Vitals per chart ASSESSMENT & PLAN 57-year-old male with comorbidities including diabetes mellitus type 2, CAD status post coronary artery stenting, and obesity. The patient came to the e mergency room with chief complaint of abdominal pain. CT scan of the abdomen and pelvis was showing mild urinary bladder wall thickening with no evidence of obstructive uropathy and moderate amount of stool throughout the colon. The patient's pancreatic lipase level was elevated. The patient was admitted to inpatient setting for further treatment and evaluation. 1. Acute abdominal pain. -Etiology unclear. -Most probably secondary to underlying pancreatitis (resolved). -Right upper quadrant ultrasound showing gallbladder sludge. LFTs within normal limits. -Gastroenterology following. Plan for esophagogastroduodenoscopy. 2. Diabetes mellitus type II. -Continue sliding scale insulin along with basal insulin. -A1C 10.9. 3. CAD, status post coronary artery stenting. -Continue cardiac medications. 4. Nicotine use. -Cessation advised. 5. Fluids, electrolytes, and nutrition. -Clear liquids. 6. DVT prophylaxis. -Bilateral SCDs. 7. Plan. -Continue pain control. -Await esophagogastroduodenoscopy. The patient was seen in collaboration with Dr. Garay. Result Diagram: 06/17/18 0424 06/17/18 0424 Results 24hrs Laboratory Tests Test 06/16/18 09:06 06/16/18 10:56 06/16/18 12:56 06/16/18 18:03 Bedside Glucose 99 103 91 92 Test 06/16/18 20:09 06/17/18 04:24 Bedside Glucose 94 White Blood Count 11.5 H Red Blood Count 4.30 L Hemoglobin 12.9 L Hematocrit 39.4 L Mean Corpuscular 91.6 Volume Mean Corpuscular 30.0 Hemoglobin Mean Corpuscular 32.7 Hemoglobin Concent Red Cell 14.3 Distribution Width Platelet Count 192 Mean Platelet Volume 9.7 Immature 0.300 Granulocytes % Neutrophils % 62.4 Lymphocytes % 19.9 Monocytes % 7.4 Eosinophils % 9.5 H Basophils % 0.5 Nucleated Red Blood 0.0 Cells % Immature 0.030 Granulocytes # Neutrophils # 7.2 Lymphocytes # 2.3 Monocytes # 0.9 Eosinophils # 1.1 H Basophils # 0.1 Nucleated Red Blood 0.0 Cells # Sodium Level 143 Potassium Level 3.6 Chloride Level 109 Carbon Dioxide Level 26 Anion Gap 8 Blood Urea Nitrogen 10 Creatinine 0.56 L Est Glomerular > 60 Filtrat Rate mL/min Glucose Level 70 Calcium Level 9.0 Phosphorus Level 4.6 Magnesium Level 2.1 Total Bilirubin 0.8 Direct Bilirubin 0.00 Indirect Bilirubin 0.8 Aspartate Amino 20 Transf (AST/SGOT) Alanine 17 Aminotransferase (AL T/SGPT) Alkaline Phosphatase 82 Total Protein 6.5 Albumin 3.7 Globulin 2.80 Albumin/Globulin 1.32 Ratio Lipase 30 Exam/Review of Systems Exam Vitals Vital Signs Date Temp Pulse Resp B/P (MAP) Pulse Ox O2 O2 Flow FiO2 Time Delivery Rate 06/17/18 98.3 70 18 137/73 100 Room Air 07:35 (94) Intake and Output 06/16/18 06/16/18 06/17/18 1515:00 23:00 07:00 IntakeIntake Total 200 ml 1250 ml OutputOutput Total 2 ml BalanceBalance 200 ml 1248 ml Results Results 24hrs Laboratory Tests Test 06/16/18 09:06 06/16/18 10:56 06/16/18 12:56 06/16/18 18:03 Bedside Glucose 99 103 91 92 Test 06/16/18 20:09 06/17/18 04:24 Bedside Glucose 94 White Blood Count 11.5 H Red Blood Count 4.30 L Hemoglobin 12.9 L Hematocrit 39.4 L Mean Corpuscular 91.6 Volume Mean Corpuscular 30.0 Hemoglobin Mean Corpuscular 32.7 Hemoglobin Concent Red Cell 14.3 Distribution Width Platelet Count 192 Mean Platelet Volume 9.7 Immature 0.300 Granulocytes % Neutrophils % 62.4 Lymphocytes % 19.9 Monocytes % 7.4 Eosinophils % 9.5 H Basophils % 0.5 Nucleated Red Blood 0.0 Cells % Immature 0.030 Granulocytes # Neutrophils # 7.2 Lymphocytes # 2.3 Monocytes # 0.9 Eosinophils # 1.1 H Basophils # 0.1 Nucleated Red Blood 0.0 Cells # Sodium Level 143 Potassium Level 3.6 Chloride Level 109 Carbon Dioxide Level 26 Anion Gap 8 Blood Urea Nitrogen 10 Creatinine 0.56 L Est Glomerular > 60 Filtrat Rate mL/min Glucose Level 70 Calcium Level 9.0 Phosphorus Level 4.6 Magnesium Level 2.1 Total Bilirubin 0.8 Direct Bilirubin 0.00 Indirect Bilirubin 0.8 Aspartate Amino 20 Transf (AST/SGOT) Alanine 17 Aminotransferase (AL T/SGPT) Alkaline Phosphatase 82 Total Protein 6.5 Albumin 3.7 Globulin 2.80 Albumin/Globulin 1.32 Ratio Lipase 30 Medications Medication Current Medications IV Flush (NS 3 ml) 3 ml PER PROTOCOL IV ; Start 06/15/18 at 07:00 Ondansetron HCl (Zofran Inj) 4 mg Q6H PRN IV NAUSEA/VOMITING; Start 06/15/18 at 07:00 Morphine Sulfate (morphine) 2 mg Q4H PRN IV .SEVERE PAIN 7-10 Last administered on 06/17/18at 04:07; Admin Dose 2 MG; Start 06/15/18 at 07:00 Diagnostic Test (Pha) (Accu-Chek) 1 ea 02 XX ; Start 06/16/18 at 02:00 Miscellaneous Information 1 ea NOTE XX ; Start 06/15/18 at 08:00 Glucose (Glutose) 15 gm Q15M PRN PO DECREASED GLUCOSE; Start 06/15/18 at 08:00 Glucose (Glutose) 22.5 gm Q15M PRN PO DECREASED GLUCOSE; Start 06/15/18 at 08:00 Dextrose (D50w Syringe) 25 ml Q15M PRN IV DECREASED GLUCOSE; Start 06/15/18 at 08:00 Dextrose (D50w Syringe) 50 ml Q15M PRN IV DECREASED GLUCOSE; Start 06/15/18 at 08:00 Glucagon (Glucagen) 1 mg Q15M PRN IM DECREASED GLUCOSE; Start 06/15/18 at 08:00 Glucose (Glutose) 15 gm Q15M PRN BUCCAL DECREASED GLUCOSE; Start 06/15/18 at 08:00 Sodium Chloride 1,000 ml @ 100 mls/hr Q10H IV Last administered on 06/17/18 02:17; Admin Dose 100 MLS/HR; Start 06/15/18 at 11:00 Aspirin (Halfprin) 81 mg DAILY PO Last administered on 06/16/18 09:08; Admin Dose 81 MG; Start 06/16/18 at 09:00 Gabapentin (Neurontin) 600 mg TID PO Last administered on 06/16/18 20:15; Admin Dose 600 MG; Start 06/15/18 at 13:00 Isosorbide Mononitrate (Imdur) 30 mg DAILY PO Last administered on 06/16/18 09:08; Admin Dose 30 MG; Start 06/16/18 at 09:00 Atorvastatin Calcium (Lipitor) 10 mg DAILY@21 PO Last administered on 06/16/18at 20:14; Admin Dose 10 MG; Start 06/15/18 at 21:00 Insulin Detemir (Levemir) 10 units DAILY@0800 SC Last administered on 06/16/18at 10:58; Admin Dose 10 UNITS; Start 06/16/18 at 08:00 Insulin Aspart (Novolog Insulin Pen) (Adult SC Insulin - Moder... WITH MEALS BEDTIME SC ; Start 06/15/18 at 17:55 Nicotine (Nicoderm 14 Mg/ 24hr) 1 patch DAILY TRANSDERM Last administered on 06/16/18at 14:11; Admin Dose 1 PATCH; Start 06/16/18 at 14:00 Pantoprazole (Protonix Iv) 40 mg DAILY@06 IV Last administered on 06/17/18at 05:05; Admin Dose 40 MG; Start 06/17/18 at 06:00 Hyoscyamine (Levsin (Sl)) 0.125 mg Q4H PRN SL abdominal pain; Start 06/16/18 at 14:00 Acetaminophen (Tylenol Tab) 650 mg Q6H PRN PO MILD PAIN(1-3)OR ELEVATED TEMP Last administered on 06/17/18at 05:04; Admin Dose 650 MG; Start 06/16/18 at 20:00 DOM ATWOOD NP Jun 17, 2018 08:23
[2018-06-17] MEDS: NICOTINE (14 MG/24 HR) PATCH TRANSDERM SCH (08:42)
[2018-06-17] MEDS: INSULIN DETEMIR [LEVEMIR] (100 UNITS/ML) SYG SC SCH (08:44)
[2018-06-17] MEDS: ISOSORBIDE MONONITRATE(SR)30 MG TAB PO SCH (08:45)
[2018-06-17] MEDS: ASPIRIN (EC) 81 MG TAB PO SCH (08:45)
[2018-06-17] MEDS: GABAPENTIN 300 MG CAP PO SCH ×3 (08:46→21:13)
[2018-06-17] MEDS: DEXTROSE 5%-0.45% NACL 1,000 ML IV SCH ×2 (10:34→21:38)
--- NOTE | 2018-06-17 17:05 | PREAC ---
Date/Time of Note Date/Time of Note DATE: 06/17/18 TIME: 17:02 Anesthesia Eval and Record Evaluation Time Pre-Procedure Interview DATE: 06/17/18 TIME: 17:02 Age 57 Sex male NPO: 8 hrs Preoperative diagnosis Abdominal pain, Colon screening Planned procedure EGD, Colonoscopy Past Medical History Past Medical History: Includes Cardio: HTN, Dyslipidemia Endo: Diabetes Pulm: COPD Hepatic: Alcohol abuse GI: GERD, Obesity Surgery & Anesthesia Issues No known issue Meds Anticoagulation: Yes Beta Paul within 24 hr: No Reason Beta Paul not given: Pt. not on B-Paul Active Scripts Naproxen* (Naprosyn*) 500 Mg Tablet, 500 MG PO BID PRN for PAIN AND/OR INFLAMMATION, #30 TAB Prov:FRANCES MAYNARD PA-C 01/31/18 Acetaminophen* (Tylophen*) 500 Mg Capsule, 1 CAP PO Q6H PRN for PAIN AND OR ELEVATED TEMP, #20 CAP Prov:RUPERT ARELLANO PA-C 08/09/17 Meclizine Hcl* (Antivert*) 12.5 Mg Tab, 12.5 MG PO Q6H PRN for DIZZINESS, #20 TAB Prov:RUPERT ARELLANO PA-C 08/09/17 Naproxen* (Naprosyn*) 500 Mg Tablet, 500 MG PO BID PRN for PAIN AND/OR INFLAMMATION, #30 TAB Prov:JERZY BAH PA-C 01/24/17 Meclizine Hcl* (Antivert*) 12.5 Mg Tab, 12.5 MG PO Q6H PRN for DIZZINESS, #20 TAB Prov:JERZY BAH PA-C 01/24/17 Hydrocodone/Acetaminophen ([place] 5-325 Tablet) 1 Each Tablet, 1 TAB PO Q6H PRN for PAIN, #10 TAB Prov:JERZY BAH PA-C 01/24/17 Magnesium Hydroxide* (Milk Of Magnesia*) 400 Mg/5 Ml Oral.susp, 30 ML PO DAILY for 7 Days, #1 BOTTLE Prov:DONNA CASEY MD 06/26/16 Polyethylene Glycol* (Miralax*) 17 Gm Powd.pack, 17 GM PO DAILY, #30 PACKET Prov:DONNA CASEY MD 06/26/16 Paroxetine Hcl* (Paxil*) 10 Mg Tab, 10 MG PO DAILY for 30 Days Prov:YENYVIDHYANIGHATNADER 12/02/14 Isosorbide Mononitrate* (Isosorbide Mononitrate*) 30 Mg Tabsr, 30 MG PO DAILY for 30 Days Prov:YENYLAURITANIGHAT MartinNADER 12/02/14 Aspirin* (Aspirin* EC) 81 Mg Tabec, 81 MG PO DAILY for 30 Days Prov:YENYNADER KEE 12/02/14 Reported Medications Omeprazole* (Omeprazole*) 40 Mg Capsule.dr, 40 MG PO DAILY, #30 CAP 06/26/16 Pioglitazone Hcl* (Actos*) 30 Mg Tablet, 30 MG PO DAILY, #30 TAB 06/26/16 Simvastatin* (Zocor*) 20 Mg Tablet, 20 MG PO QHS, #30 TAB 06/26/16 Insulin Glargine* (Lantus*) 100 Unit/Ml Soln, 45 UNIT SC QHS, #1 VIAL 06/26/16 Gabapentin* (Gabapentin*) 600 Mg Tablet, 600 MG PO TID, #90 TAB 04/21/15 Docusate Sodium* (Colace*) 100 Mg Capsule, 100 MG PO DAILY 10/30/12 Metformin* (Glucophage*) 500 Mg Tab, 1000 MG PO BID 09/05/11 Current Medications IV Flush (NS 3 ml) 3 ml PER PROTOCOL IV ; Start 06/15/18 at 07:00 Ondansetron HCl (Zofran Inj) 4 mg Q6H PRN IV NAUSEA/VOMITING; Start 06/15/18 at 07:00 Morphine Sulfate (morphine) 2 mg Q4H PRN IV .SEVERE PAIN 7-10 Last administered on 06/17/18at 12:28; Admin Dose 2 MG; Start 06/15/18 at 07:00 Diagnostic Test (Pha) (Accu-Chek) 1 ea 02 XX ; Start 06/16/18 at 02:00 Miscellaneous Information 1 ea NOTE XX ; Start 06/15/18 at 08:00 Glucose (Glutose) 15 gm Q15M PRN PO DECREASED GLUCOSE; Start 06/15/18 at 08:00 Glucose (Glutose) 22.5 gm Q15M PRN PO DECREASED GLUCOSE; Start 06/15/18 at 08:00 Dextrose (D50w Syringe) 25 ml Q15M PRN IV DECREASED GLUCOSE; Start 06/15/18 at 08:00 Dextrose (D50w Syringe) 50 ml Q15M PRN IV DECREASED GLUCOSE; Start 06/15/18 at 08:00 Glucagon (Glucagen) 1 mg Q15M PRN IM DECREASED GLUCOSE; Start 06/15/18 at 08:00 Glucose (Glutose) 15 gm Q15M PRN BUCCAL DECREASED GLUCOSE; Start 06/15/18 at 08:00 Aspirin (Halfprin) 81 mg DAILY PO Last administered on 06/16/18 09:08; Admin Dose 81 MG; Start 06/16/18 at 09:00 Gabapentin (Neurontin) 600 mg TID PO Last administered on 06/16/18 20:15; Admin Dose 600 MG; Start 06/15/18 at 13:00 Isosorbide Mononitrate (Imdur) 30 mg DAILY PO Last administered on 06/16/18 09:08; Admin Dose 30 MG; Start 06/16/18 at 09:00 Atorvastatin Calcium (Lipitor) 10 mg DAILY@21 PO Last administered on 06/16/18 20:14; Admin Dose 10 MG; Start 06/15/18 at 21:00 Insulin Detemir (Levemir) 10 units DAILY@0800 SC Last administered on 06/17/18at 08:44; Admin Dose 10 UNITS; Start 06/16/18 at 08:00 Insulin Aspart (Novolog Insulin Pen) (Adult SC Insulin - Moder... WITH MEALS BEDTIME SC ; Start 06/15/18 at 17:55 Nicotine (Nicoderm 14 Mg/ 24hr) 1 patch DAILY TRANSDERM Last administered on 06/17/18at 08:42; Admin Dose 1 PATCH; Start 06/16/18 at 14:00 Pantoprazole (Protonix Iv) 40 mg DAILY@06 IV Last administered on 06/17/18 05:05; Admin Dose 40 MG; Start 06/17/18 at 06:00 Hyoscyamine (Levsin (Sl)) 0.125 mg Q4H PRN SL abdominal pain; Start 06/16/18 at 14:00 Acetaminophen (Tylenol Tab) 650 mg Q6H PRN PO MILD PAIN(1-3)OR ELEVATED TEMP Last administered on 06/17/18at 05:04; Admin Dose 650 MG; Start 06/16/18 at 20:00 Dextrose/Sodium Chloride 1,000 ml @ 75 mls/hr [id number] IV Last administered on 06/17/18at 10:34; Admin Dose 75 MLS/HR; Start 06/17/18 at 10:30 Polyethylene Glycol (Miralax) 17 gm DAILY PO ; Start 06/17/18 at 21:00 Meds reviewed: Yes Allergies Coded Allergies: Penicillins (Unverified Allergy, Unknown, 06/26/16) Allergies Reviewed: Yes Labs/Studies Labs Reviewed: Reviewed by anesthesiologist Result Diagram: 06/17/18 0424 06/17/18 0424 Laboratory Tests 06/17/18 04:24 test: N/A Studies: ECG Pre-procedure Exam Last vitals Vital Signs Date Temp Pulse Resp B/P (MAP) Pulse Ox O2 O2 Flow FiO2 Time Delivery Rate 06/17/18 99.0 82 16 149/72 96 Room Air 15:46 (97) Airway: Adequate mouth opening, Adequate thyromental dist Mallampati: Mallampati III Teeth: Normal Lung: Normal Heart: Normal ASA Physical Status ASA physical status: 3 Emergency: None Planned Anesthetic General/MAC: MAC Planned Pain Management Parenteral pain med Pre-operative Attestations Prior to commencing anesthesia and surgery, the patient was re-evaluated, there was verification of: *The patient's identity *The results of appropriate recent lab work and preoperative vital signs *The above evaluation not changing prior to induction *Anesthetic plan, risk benefits, alternative and complications discussed with patient/family; questions answered; patient/family understands, accepts and wishes to proceed. DEO SANDOVAL MD Jun 17, 2018 17:05
[2018-06-17] MEDS ORDERED: LIDOCAINE 2% (SDV) 5 ML INJ ONE (17:06)
[2018-06-17] MEDS ORDERED: PROPOFOL 60 ML ONE (17:06)
[2018-06-17] MEDS ORDERED: FENTAnyl 50 MCG/ML VIAL ONE (17:41)
--- NOTE | 2018-06-17 17:59 | PAC ---
Date/Time of Note Date/Time of Note DATE: 06/17/18 TIME: 17:59 Post-Anesthesia Notes Post-Anesthesia Note Last documented vital signs Vital Signs Date Temp Pulse Resp B/P (MAP) Pulse Ox O2 O2 Flow FiO2 Time Delivery Rate 06/17/18 99.0 82 16 149/72 96 Room Air 15:46 (97) Activity: WNL Respiratory function: WNL Cardiovascular function: WNL Mental status: Baseline Pain reasonably controlled: Yes Hydration appropriate: Yes Nausea/Vomiting absent: Yes Comments BP:112/56, P:78, Spo2:100%, T:98,9 DEO SANDOVAL MD Jun 17, 2018 17:59
[2018-06-17] MEDS ORDERED: ONDANSETRON 4 MG INJ IV PRN (18:00)
[2018-06-17] MEDS ORDERED: FENTAnyl 50 MCG/ML VIAL IV PRN ×2 (18:00)
[2018-06-17] MEDS: ATORVASTATIN 10 MG TAB PO SCH (21:13)
[2018-06-17] MEDS: POLYETHYLENE GLYCOL 17 GM PACKET PO SCH (21:14)
[2018-06-17] MEDS: PANTOPRAZOLE 40 MG INJ IV SCH (21:14)
[2018-06-18] MEDS: morphine 2 MG INJ IV PRN ×3 (00:53→17:50)
[2018-06-18 01:01] VITALS: BP 131/61; PULSE 99; RESP 18
[2018-06-18] MEDS: ACCU-CHEK XX SCH (02:24)
[2018-06-18] MEDS: PANTOPRAZOLE 40 MG INJ IV SCH (05:46)
[2018-06-18] MEDS: ACETAMINOPHEN 325 MG TAB PO PRN (05:58)
[2018-06-18] MEDS ORDERED: PANTOPRAZOLE (EC) 40 MG TAB PO SCH ×2 (06:00→18:00)
[2018-06-18 07:29] VITALS: BP 108/55; PULSE 74; RESP 18
[2018-06-18] MEDS: Insulin NOVOLOG SS MODERATE Algorithm (SS with meals and bedtime) SC SCH ×4 (08:55→20:30)
[2018-06-18] MEDS: ASPIRIN (EC) 81 MG TAB PO SCH (08:56)
[2018-06-18] MEDS: NICOTINE (14 MG/24 HR) PATCH TRANSDERM SCH (08:56)
[2018-06-18] MEDS: GABAPENTIN 300 MG CAP PO SCH ×3 (08:56→20:26)
[2018-06-18] MEDS: POLYETHYLENE GLYCOL 17 GM PACKET PO SCH (08:56)
[2018-06-18] MEDS: INSULIN DETEMIR [LEVEMIR] (100 UNITS/ML) SYG SC SCH (08:56)
[2018-06-18] MEDS: ISOSORBIDE MONONITRATE(SR)30 MG TAB PO SCH (08:57)
--- NOTE | 2018-06-18 12:44 | PN ---
Date/Time of Note Date/Time of Note DATE: 06/18/18 TIME: 12:33 Assessment/Plan VTE Prophylaxis Risk score (from Ns)>0 risk: 2 SCD applied (from Ns): Yes Pharmacological prophylaxis: other (scds) Lines/Catheters IV Catheter Type (from [facility]): Peripheral IV Urinary Cath still in place: No Assessment/Plan Hospital Course Assessment: Upper abdominal pain EGD 06/17/18 Moderate gastritis. Rule out H. pylori infection, biopsies obtained Otherwise normal EGD Nausea- resolved Elevated lipase- resolved DM- poorly controlled Pyrosis High cholesterol Hx of cardiac stent- 5 years ago current smoker - 1 pack per day 20+ years Plan: PPI p.o. twice daily times 4 weeks Advance diet as tolerated Await biopsy results I spoke to patient's daughter Araceli reviewed EGD results Patient seen in collaboration with Dr. Coronado/Jazz Subjective: Course reviewed with nursing staff Patient interviewed and examined All labs, imaging and other results reviewed The patient states he feels better today. WBC slightly up from yesterday. Pt states he had x1 BM today. He does note a cough. Encourage ambulation and deep breathing. PHYSICAL EXAMINATION: GENERAL: Well developed, well nourished, alert & oriented x 3, in no acute distress SKIN: No lesions HEAD: Normocephalic, atraumatic, no tenderness. EYES: Pupils equal reactive to light, no discharge. EARS/NOSE AND THROAT: Ears normal, nose normal, oropharynx normal. NECK: Supple, no masses CHEST: Inspection within normal limits. CARDIOVASCULAR: Heart: Regular rate and rhythm RESPIRATORY: Inspiratory wheezing GASTROINTESTINAL AND LIVER: Abdomen: Soft, no abd pain with palpation today, non-distended, no hernias, no masses, no organomegaly, no ascites, no guarding, no rebound tenderness, normoactive bowel sounds. Rectal: Deferred. Result Diagram: 06/18/18 0432 06/18/18 0432 Results 24hrs Laboratory Tests Test 06/17/18 12:49 06/17/18 15:47 06/17/18 17:44 06/17/18 18:43 Bedside Glucose 72 81 64 L 98 Test 06/17/18 18:59 06/17/18 21:19 06/18/18 02:06 06/18/18 04:32 Bedside Glucose 132 270 H 226 H White Blood Count 12.0 H Red Blood Count 4.76 Hemoglobin 14.5 Hematocrit 42.8 Mean Corpuscular 89.9 Volume Mean Corpuscular 30.5 Hemoglobin Mean Corpuscular 33.9 Hemoglobin Concent Red Cell 14.0 Distribution Width Platelet Count 212 Mean Platelet Volume 10.2 Immature 0.300 Granulocytes % Neutrophils % 63.0 Lymphocytes % 22.9 Monocytes % 7.9 Eosinophils % 5.4 Basophils % 0.5 Nucleated Red Blood 0.0 Cells % Immature 0.030 Granulocytes # Neutrophils # 7.5 Lymphocytes # 2.7 Monocytes # 1.0 H Eosinophils # 0.6 H Basophils # 0.1 Nucleated Red Blood 0.0 Cells # Sodium Level 140 Potassium Level 3.7 Chloride Level 104 Carbon Dioxide Level 27 Anion Gap 9 Blood Urea Nitrogen 12 Creatinine 0.70 Est Glomerular > 60 Filtrat Rate mL/min Glucose Level 209 # Calcium Level 9.5 Phosphorus Level 3.7 Magnesium Level 2.1 Total Bilirubin 0.9 Direct Bilirubin 0.00 Indirect Bilirubin 0.9 Aspartate Amino 21 Transf (AST/SGOT) Alanine 20 Aminotransferase (AL T/SGPT) Alkaline Phosphatase 105 Total Protein 7.0 Albumin 3.9 Globulin 3.10 Albumin/Globulin 1.25 Ratio Lipase 19 L Test 06/18/18 08:52 Bedside Glucose 192 Exam/Review of Systems Exam Vitals Vital Signs Date Temp Pulse Resp B/P (MAP) Pulse Ox O2 O2 Flow FiO2 Time Delivery Rate 06/18/18 98.6 74 18 108/55 95 Room Air 07:29 (72) Intake and Output 06/17/18 06/17/18 06/18/18 1515:00 23:00 07:00 IntakeIntake Total 250 ml 350 ml OutputOutput Total 700 ml BalanceBalance -450 ml 350 ml Results Results 24hrs Laboratory Tests Test 06/17/18 12:49 06/17/18 15:47 06/17/18 17:44 06/17/18 18:43 Bedside Glucose 72 81 64 L 98 Test 06/17/18 18:59 06/17/18 21:19 06/18/18 02:06 06/18/18 04:32 Bedside Glucose 132 270 H 226 H White Blood Count 12.0 H Red Blood Count 4.76 Hemoglobin 14.5 Hematocrit 42.8 Mean Corpuscular 89.9 Volume Mean Corpuscular 30.5 Hemoglobin Mean Corpuscular 33.9 Hemoglobin Concent Red Cell 14.0 Distribution Width Platelet Count 212 Mean Platelet Volume 10.2 Immature 0.300 Granulocytes % Neutrophils % 63.0 Lymphocytes % 22.9 Monocytes % 7.9 Eosinophils % 5.4 Basophils % 0.5 Nucleated Red Blood 0.0 Cells % Immature 0.030 Granulocytes # Neutrophils # 7.5 Lymphocytes # 2.7 Monocytes # 1.0 H Eosinophils # 0.6 H Basophils # 0.1 Nucleated Red Blood 0.0 Cells # Sodium Level 140 Potassium Level 3.7 Chloride Level 104 Carbon Dioxide Level 27 Anion Gap 9 Blood Urea Nitrogen 12 Creatinine 0.70 Est Glomerular > 60 Filtrat Rate mL/min Glucose Level 209 # Calcium Level 9.5 Phosphorus Level 3.7 Magnesium Level 2.1 Total Bilirubin 0.9 Direct Bilirubin 0.00 Indirect Bilirubin 0.9 Aspartate Amino 21 Transf (AST/SGOT) Alanine 20 Aminotransferase (AL T/SGPT) Alkaline Phosphatase 105 Total Protein 7.0 Albumin 3.9 Globulin 3.10 Albumin/Globulin 1.25 Ratio Lipase 19 L Test 06/18/18 08:52 Bedside Glucose 192 Medications Medication Current Medications IV Flush (NS 3 ml) 3 ml PER PROTOCOL IV ; Start 06/15/18 at 07:00 Ondansetron HCl (Zofran Inj) 4 mg Q6H PRN IV NAUSEA/VOMITING; Start 06/15/18 at 07:00 Morphine Sulfate (morphine) 2 mg Q4H PRN IV .SEVERE PAIN 7-10 Last administered on 06/18/18at 00:53; Admin Dose 2 MG; Start 06/15/18 at 07:00 Diagnostic Test (Pha) (Accu-Chek) 1 ea 02 XX Last administered on 06/18/18at 02:24; Admin Dose 1 EA; Start 06/16/18 at 02:00 Miscellaneous Information 1 ea NOTE XX ; Start 06/15/18 at 08:00 Glucose (Glutose) 15 gm Q15M PRN PO DECREASED GLUCOSE; Start 06/15/18 at 08:00 Glucose (Glutose) 22.5 gm Q15M PRN PO DECREASED GLUCOSE; Start 06/15/18 at 08:00 Dextrose (D50w Syringe) 25 ml Q15M PRN IV DECREASED GLUCOSE; Start 06/15/18 at 08:00 Dextrose (D50w Syringe) 50 ml Q15M PRN IV DECREASED GLUCOSE; Start 06/15/18 at 08:00 Glucagon (Glucagen) 1 mg Q15M PRN IM DECREASED GLUCOSE; Start 06/15/18 at 08:00 Glucose (Glutose) 15 gm Q15M PRN BUCCAL DECREASED GLUCOSE; Start 06/15/18 at 08:00 Aspirin (Halfprin) 81 mg DAILY PO Last administered on 06/18/18 08:56; Admin Dose 81 MG; Start 06/16/18 at 09:00 Gabapentin (Neurontin) 600 mg TID PO Last administered on 06/18/18 08:56; Admin Dose 600 MG; Start 06/15/18 at 13:00 Isosorbide Mononitrate (Imdur) 30 mg DAILY PO Last administered on 06/16/18 0 9:08; Admin Dose 30 MG; Start 06/16/18 at 09:00 Atorvastatin Calcium (Lipitor) 10 mg DAILY@21 PO Last administered on 06/17/18 21:13; Admin Dose 10 MG; Start 06/15/18 at 21:00 Insulin Detemir (Levemir) 10 units DAILY@0800 SC Last administered on 06/18/18 08:56; Admin Dose 10 UNITS; Start 06/16/18 at 08:00 Insulin Aspart (Novolog Insulin Pen) (Adult SC Insulin - Moder... WITH MEALS BEDTIME SC Last administered on 06/18/18 08:55; Admin Dose 4 UNIT; Start 06/15/18 at 17:55 Nicotine (Nicoderm 14 Mg/ 24hr) 1 patch DAILY TRANSDERM Last administered on 06/18/18 08:56; Admin Dose 1 PATCH; Start 06/16/18 at 14:00 Hyoscyamine (Levsin (Sl)) 0.125 mg Q4H PRN SL abdominal pain; Start 06/16/18 at 14:00 Acetaminophen (Tylenol Tab) 650 mg Q6H PRN PO MILD PAIN(1-3)OR ELEVATED TEMP Last administered on 06/18/18 05:58; Admin Dose 650 MG; Start 06/16/18 at 20:00 Polyethylene Glycol (Miralax) 17 gm DAILY PO Last administered on 06/18/18 08:56; Admin Dose 17 GM; Start 06/17/18 at 21:00 Pantoprazole (Protonix Iv) 40 mg BID@0600,1800 IV Last administered on 06/18/18at 05:46; Admin Dose 40 MG; Start 06/17/18 at 18:00 ESTER CONTRERAS Jun 18, 2018 12:44
[2018-06-18 13:10] VITALS: BP 138/72; PULSE 76; RESP 18
[2018-06-18] MEDS ORDERED: PANT40TA4 PO (14:54)
--- NOTE | 2018-06-18 14:58 | PDOCDIS ---
Discharge Instructions CONDITION [id number] Patient Condition: [id number] Stable HOME CARE INSTRUCTIONS: [id number] Special Diet: [id number] Carbohydrate controlled. FOLLOW UP/APPOINTMENTS Follow-up Plan Follow-up with your primary care physician in 2 weeks. OTHER ORDERS: Other Orders: 1. Resume home medications. 2. Avoid using NSAIDs (ibuprofen, Motrin, and Aleve, etc.). 3. Start taking Protonix twice daily. 4. Resume activities as tolerated. 5. Take a low carbohydrate diet. 6. Please go to the nearest emergency room if you have significant abdominal pain, persistent nausea/vomiting, blood in stool or black colored stool, or any other unusual signs/symptoms. DOM ATWOOD NP Jun 18, 2018 14:57
--- NOTE | 2018-06-18 17:04 | DS ---
Date/Time of Note Date/Time of Note DATE: 06/18/18 TIME: 17:02 Discharge Summary Admission/Discharge Info Admit Date/Time Jun 15, 2018 at 04:16 Discharge Date/Time Discharge Diagnosis 1. Acute pancreatitis. 2. Gastritis. 3. Diabetes mellitus type II. A1C 10.9. 4. CAD, status post coronary artery stenting. 5. Nicotine use. Patient Condition: Stable Consults 1. Raul Croonado MD Gastroenterology. Procedures CT Abdomen & Pelvis IMPRESSION: Mild urinary bladder wall thickening should be correlated with urinalysis. No evidence for obstructive uropathy. Moderate amount of stool throughout the colon. Probable sludge in the gallbladder. Liver US IMPRESSION: Gallbladder sludge. Esophagogastroduodenoscopy on 06/17/2018 Impression: Moderate gastritis. Hx of Present Illness This is a 57-year-old male with comorbidities including diabetes mellitus type 2, CAD status post coronary artery stenting, and obesity. The patient came to the emergency room with chief complaint of abdominal pain. CT scan of the abdomen and pelvis was showing mild urinary bladder wall thickening with no evidence of obstructive uropathy and moderate amount of stool throughout the colon. The patient's pancreatic lipase level was elevated. The patient was admitted to inpatient setting for further treatment and evaluation. Hospital Course The patient's abdominal pain was extensively evaluated. The patient's CT scan of the abdomen and pelvis was showing mild urinary bladder wall thickening with no evidence of obstructive uropathy and moderate amount of stool throughout the colon. The patient's pancreatic enzyme level was elevated. The patient was kept n.p.o. The patient's pancreatic enzyme levels were trended. The patient was resumed on a diet once the patient's pancreatic enzyme levels were normalized. Nevertheless, the patient continued to have abdominal pain. The patient's CT scan of the abdomen and pelvis showed possible gallbladder sludge. The patient underwent a right upper quadrant ultrasound that was showing gallbladder sludge. The patient's LFTs were within normal limits. The patient did not have any evidence of biliary ductal dilatation or gallbladder wall thickening. A gastroenterology consult was obtained. The patient underwent an esophagogastroduodenoscopy on 06/17/2018 that showed moderate gastritis. The patient was started on proton pump inhibitor therapy. The patient's symptomatology improved with PPI. Pathology from esophagogastroduodenoscopy is pending at this time. The patient's chronic problems include CAD and he is status post coronary artery stenting in the past. The patient was maintained on his cardiac medications including aspirin. The patient is a current nicotine user. The patient was advised on a nicotine cessation. The patient had a stable hospital course. The patient was cleared by gastroenterology to be discharged home. The patient had a mechanical fall while in the hospital on 06/18/2018. The patient verbalized the aching of bilateral upper extremities and occipital region of the head as well as the lumbar area. Imaging studies were done including a the areas of involvement that were negative for any acute findings. Discharge Instructions 1. Resume home medications. 2. Avoid using NSAIDs (ibuprofen, Motrin, and Aleve, etc.). 3. Start taking Protonix twice daily. 4. Resume activities as tolerated. 5. Take a low carbohydrate diet. 6. Please go to the nearest emergency room if you have significant abdominal pain, persistent nausea/vomiting, blood in stool or black colored stool, or any other unusual signs/symptoms. The patient verbalized understanding of his discharge instructions. At this time I would like to thank all the consultants for seeing the patient, doing the necessary procedures, and providing clinical recommendations. The patient was seen in collaboration with Dr. Garay. [place] Meds Active Scripts Pantoprazole* (Pantoprazole*) 40 Mg Tablet., 40 MG PO BID@, #60 TAB Prov:DOM ATWOOD NP 06/18/18 Magnesium Hydroxide* (Milk Of Magnesia*) 400 Mg/5 Ml Oral.susp, 30 ML PO DAILY for 7 Days, #1 BOTTLE Prov:DONNA CASEY MD 06/26/16 Polyethylene Glycol* (Miralax*) 17 Gm Powd.pack, 17 GM PO DAILY, #30 PACKET Prov:DONNA CASEY MD 06/26/16 Paroxetine Hcl* (Paxil*) 10 Mg Tab, 10 MG PO DAILY for 30 Days Prov:NADER LINN 12/02/14 Isosorbide Mononitrate* (Isosorbide Mononitrate*) 30 Mg Tabsr, 30 MG PO DAILY for 30 Days Prov:NADER LINN 12/02/14 Aspirin* (Aspirin* EC) 81 Mg Tabec, 81 MG PO DAILY for 30 Days Prov:NADER LINN 12/02/14 Reported Medications Pioglitazone Hcl* (Actos*) 30 Mg Tablet, 30 MG PO DAILY, #30 TAB 06/26/16 Simvastatin* (Zocor*) 20 Mg Tablet, 20 MG PO QHS, #30 TAB 06/26/16 Insulin Glargine* (Lantus*) 100 Unit/Ml Soln, 45 UNIT SC QHS, #1 VIAL 06/26/16 Gabapentin* (Gabapentin*) 600 Mg Tablet, 600 MG PO TID, #90 TAB 04/21/15 Docusate Sodium* (Colace*) 100 Mg Capsule, 100 MG PO DAILY 10/30/12 Metformin* (Glucophage*) 500 Mg Tab, 1000 MG PO BID 09/05/11 Discontinued Reported Medications Omeprazole* (Omeprazole*) 40 Mg Capsule.dr, 40 MG PO DAILY, #30 CAP 06/26/16 Discontinued Scripts Naproxen* (Naprosyn*) 500 Mg Tablet, 500 MG PO BID PRN for PAIN AND/OR INFLAMMATION, #30 TAB Prov:FRANCES MAYNARDC 01/31/18 Acetaminophen* (Tylophen*) 500 Mg Capsule, 1 CAP PO Q6H PRN for PAIN AND OR ELEVATED TEMP, #20 CAP Prov:RUPERT ARELLANOC 08/09/17 Meclizine Hcl* (Antivert*) 12.5 Mg Tab, 12.5 MG PO Q6H PRN for DIZZINESS, #20 TAB Prov:RUPERT ARELLANOC 08/09/17 Naproxen* (Naprosyn*) 500 Mg Tablet, 500 MG PO BID PRN for PAIN AND/OR INFLAMMATION, #30 TAB Prov:JERZY BAH PA-C 01/24/17 Meclizine Hcl* (Antivert*) 12.5 Mg Tab, 12.5 MG PO Q6H PRN for DIZZINESS, #20 TAB Prov:JERZY BAH PA-C 01/24/17 Hydrocodone/Acetaminophen ([place] 5-325 Tablet) 1 Each Tablet, 1 TAB PO Q6H PRN for PAIN, #10 TAB Prov:JERZY BAH PA-C 01/24/17 Follow-up Plan Follow-up with your primary care physician in 2 weeks. Primary Care Provider Gurpreet Stevens MD Time spent on discharge: > 30 minutes Pending Labs Laboratory Tests Test 06/17/18 17:44 06/17/18 18:43 06/17/18 18:59 06/17/18 21:19 Bedside 64 98 132 270 Glucose mg/dL (70-220) mg/dL (70-220) mg/dL (70-220) mg/dL (70-220) Test 06/18/18 02:06 06/18/18 04:32 06/18/18 08:52 06/18/18 13:34 Bedside 226 192 250 Glucose mg/dL (70-220) mg/dL (70-220) mg/dL (70-220) White Blood 12.0 Count 10^3/ul (4.8-1 0.8) Red Blood 4.76 Count 10^6/ul (4.70- 6.10) Hemoglobin 14.5 g/dl (14.0-18. 0) Hematocrit 42.8 % (42.0-52.0) Mean 89.9 Corpuscular fl (82.0-101.0 Volume ) Mean 30.5 Corpuscular pg (29.0-33.0) Hemoglobin Mean 33.9 Corpuscular g/dl (32.0-37. Hemoglobin Conc 0) ent Red Cell 14.0 Distribution % (11.5-14.5) Width Platelet Count 212 10^3/UL (140-4 15) Mean Platelet 10.2 Volume fl (7.4-10.4) Immature 0.300 Granulocytes % % (0.001-0.429 ) Neutrophils % 63.0 % (39.0-77.0) Lymphocytes % 22.9 % (15.0-51.0) Monocytes % 7.9 % (0.0-11.0) Eosinophils % 5.4 % (0.0-7.0) Basophils % 0.5 % (0.0-2.0) Nucleated Red 0.0 Blood Cells % /100WBC (0.0-0 .0) Immature 0.030 Granulocytes # 10^3/ul (0.0-0 .031) Neutrophils # 7.5 10^3/ul (1.6-7 .5) Lymphocytes # 2.7 10^3/ul (0.8-2 .9) Monocytes # 1.0 10^3/ul (0.3-0 .9) Eosinophils # 0.6 10^3/ul (0.0-0 .5) Basophils # 0.1 10^3/ul (0.0-0 .1) Nucleated Red 0.0 Blood Cells # 10^3/ul (0.0-0 .0) Sodium Level 140 mmol/L (135-14 4) Potassium 3.7 Level mmol/L (3.5-5. 1) Chloride Level 104 mmol/L (97-110 ) Carbon Dioxide 27 Level mmol/L (21-31) Anion Gap 9 (5-13) Blood Urea 12 Nitrogen mg/dl (7-20) Creatinine 0.70 mg/dl (0.61-1. 24) Est Glomerular > 60 Filtrat mL/min (>60) Rate mL/min Glucose Level 209 mg/dl (70-220) Calcium Level 9.5 mg/dl (8.4-10. 2) Phosphorus 3.7 Level mg/dl (2.5-4.9 ) Magnesium 2.1 Level mg/dl (1.7-2.5 ) Total 0.9 Bilirubin mg/dl (0.2-1.3 ) Direct 0.00 Bilirubin mg/dl (0.00-0. 20) Indirect 0.9 Bilirubin mg/dl (0-1.1) Aspartate Amino 21 Transf (AST/SGO IU/L (15-46) T) Alanine 20 Aminotransferas IU/L (13-69) e (ALT/SGPT) Alkaline 105 Phosphatase IU/L (42-121) Total Protein 7.0 g/dl (6.1-8.1) Albumin 3.9 g/dl (3.3-4.9) Globulin 3.10 g/dl (1.3-3.2) Albumin/Globuli 1.25 n Ratio Lipase 19 U/L (23-300) DOM ATWOOD NP Jun 18, 2018 17:04
[2018-06-18 20:00] VITALS: BP 140/67; PULSE 64; RESP 18
[2018-06-18] MEDS: ATORVASTATIN 10 MG TAB PO SCH (20:26)
== END 2018-06-18 21:10 | disposition home or self-care (01) | DRG 440 ==
LOC: E/R 02:01 → MS1 04:16 → 2NE 06-17 19:25
PROVIDERS: ADMIT Internal Medicine; ATTEND Internal Medicine
PROC: 0DB68ZX Excision of Stomach, Via Natural or Artificial Opening Endoscopic, Diagnostic (ICD-10-PCS; principal; 2018-06-17 17:30)
DX: K85.90 Acute pancreatitis without necrosis or infection, unspecified (principal); E11.65 Type 2 diabetes mellitus with hyperglycemia; K29.70 Gastritis, unspecified, without bleeding; I10 Essential (primary) hypertension; I25.10 Atherosclerotic heart disease of native coronary artery without angina pectoris; R12 Heartburn; F41.9 Anxiety disorder, unspecified; E78.5 Hyperlipidemia, unspecified; F17.200 Nicotine dependence, unspecified, uncomplicated; E66.9 Obesity, unspecified; Z68.30 Body mass index [BMI] 30.0-30.9, adult; Z79.4 Long term (current) use of insulin; Z79.82 Long term (current) use of aspirin; Z95.5 Presence of coronary angioplasty implant and graft
CPT/HCPCS: 70450; 72100; 74176; 76705; 80053; 80061; 81003; 82150; 82962; 83036; 83690; 83735; 84100; 85025; 88305; 93005; 96374; 96375; C9113; J1815; J2270; J2405; J3010; J7030; J7040; J7042